=== PATIENT | female | born 1940 | race Caucasian/White ===

== ENCOUNTER 2021-07-28 11:57 | Emergency (ER) | payer OTHER ==
[2021-07-28 12:48] LABS: Absolute Lymphocytes (CBC) 1.6 K/uL (0.7-4.9); Basophils % 0.4 % (0-1.3); Hematocrit 46.6 % (36.0-45.0); Lymphocytes % 21.6 % (15.3-44.8); MPV 8.2 fL (7.6-11.3)
[2021-07-28 13:02] LABS: Potassium 3.8 mmol/L (3.5-5.1)
[2021-07-28] MEDS ORDERED: ONDANSETRON 4 MG/2 ML VIAL ONE ×2 (13:05→14:20)
[2021-07-28] MEDS ORDERED: MORPHINE 2 MG/ML SYR ONE (13:05)
--- NOTE | 2021-07-28 16:46 | RAD REPORT ---
EXAM DESCRIPTION: MRI - Brain W/Wo Cont - 07/28/2021 3:07 pm CLINICAL HISTORY: Confusion COMPARISON: CT head 07/28/2021 TECHNIQUE: Sagittal T1-weighted images were obtained along with PD/heavily T2-weighted and T2-FLAIR images. Axial DWI and ADC mapping sequences were also obtained. Coronal heavily T2-weighted images w ere obtained. FINDINGS: No intracranial hemorrhage, mass or acute infarction. There is no edema or shift of midlin e structures. No extra-axial fluid collections. May-matter/white matter junction is preserved. Signa l voids are seen as a normal finding in the major intracranial vessels. Atrophy and moderate chronic ischemic changes are present. Mastoid air cells and paranasal sinuses are clear. IMPRESSION: 1. Atrophy and chronic ischemic changes are present. 2. No acute intra-cranial findings.
[2021-07-28 17:10] LABS: CSF Glucose 71 mg/dL (40-70)
--- NOTE | 2021-07-28 17:17 | RAD REPORT ---
EXAM DESCRIPTION: CT - Head Brain Wo Cont - 07/28/2021 3:07 pm CLINICAL HISTORY: CONFUSED COMPARISON: Brain W/Wo Cont dated 07/28/2021 TECHNIQUE: All CT scans are performed using dose optimization technique as appropriate and may inclu de automated exposure control or mA/KV adjustment according to patient size. FINDINGS: No intracranial hemorrhage, hydrocephalus or extra-axial fluid collection.No areas of brai n edema or evidence of midline shift. Chronic small vessel ischemic changes. Mild cerebral atrophy. The paranasal sinuses and mastoids are clear. The calvarium is intact. IMPRESSION: No acute intracranial abnormality.
[2021-07-28 17:32] LABS: Appearance CLEAR (CLEAR); Body Fluid Source CSF; Body Fluid WBC 2 /mm^3; Color of fluid Colorless (COLORLESS)
[2021-07-28 17:33] LABS: Body Fluid Source CSF; Color of fluid Colorless (COLORLESS); Fluid Total Volume 4 ml
[2021-07-28 17:34] LABS: Appearance CLEAR (CLEAR); Body Fluid WBC 1 /mm^3
[2021-07-28 19:05] LABS: Urine Blood 1+ (Negative); Urine Glucose Negative (Negative); Urine Protein Negative (Negative); Urine Specific Gravity >=1.030 (1.005-1.030); Urine pH 5.5 (5.0-7.0)
--- NOTE | 2021-07-28 19:15 | EDPHYS ---
Physician Documentation [facility] Name: Maral Cain Age: 81 yrs Sex: Female : 1940 Arrival Date: 07/28/2021 Time: 12:02 Bed 27 Private MD: ED Physician Bruce Fonseca HPI: 07/28 15:19 This 81 yrs old Female presents to ER via Wheelchair with complaints of kdr Altered Mental Status. 15:19 The patient presents with confusion, decreased mental status, decreased responsiveness, kdr disorientation. Onset: The symptoms/episode began/occurred last night. Possible causes: low blood sugar, sepsis. Associated signs and symptoms: The patient has no apparent associated signs or symptoms, Pertinent positives: confusion, lightheadedness, nausea, weakness. Current symptoms: In the emergency department the patient's symptoms are unchanged from the initial presentation. Patient's baseline: Neuro: alert and fully oriented, Motor: no deficits. The patient has not experienced similar symptoms in the past. The patient has not recently seen a physician. Historical: - Allergies: 12:14 No Known Allergies; ss - Home Meds: 12:14 None [Active]; ss - PMHx: 12:14 COPD; ss - Immunization history:: Client reports having NOT received the Covid vaccine. - Social history:: Smoking status: Patient/guardian denies using tobacco, the patient reports quitting approximately 3 years ago. ROS: 15:19 Constitutional: Negative for fever, chills, and weight loss, the patient's history was kdr gathered from her daughter. The patient was generally poorly responsive Eyes: Negative for injury, pain, redness, and discharge, Neck: Negative for injury, pain, and swelling, Cardiovascular: Negative for chest pain, palpitations, and edema, Respiratory: Negative for shortness of breath, cough, wheezing, and pleuritic chest pain, Abdomen/GI: Negative for abdominal pain, nausea, vomiting, diarrhea, and constipation, Back: Negative for injury and pain, MS/Extremity: Negative for injury and deformity, Skin: Negative for injury, rash, and discoloration, Psych: Negative for depression, anxiety, suicide ideation, homicidal ideation, and hallucinations, Allergy/Immunology: Negative for hives, rash, and allergies, Endocrine: Negative for neck swelling, polydipsia, polyuria, polyphagia, and marked weight changes. 15:19 Neuro: Positive for altered mental status, headache, Right protestant and nasal bridge pain, Negative for dizziness, gait disturbance, loss of consciousness, numbness, seizure activity, speech changes, syncope, near syncope. Exam: 15:19 Constitutional: This is a well developed, well nourished patient who is awake, alert, kdr and in no acute distress. Head/Face: Normocephalic, atraumatic. Eyes: Pupils equal round and reactive to light, extra-ocular motions intact. Lids and lashes normal. Conjunctiva and sclera are non-icteric and not injected. Cornea within normal limits. Periorbital areas with no swelling, redness, or edema. Neck: Trachea midline, no thyromegaly or masses palpated, and no cervical lymphadenopathy. Supple, full range of motion without nuchal rigidity, or vertebral point tenderness. No Meningismus. Chest/axilla: Normal chest wall appearance and motion. Nontender with no deformity. No lesions are appreciated. Cardiovascular: Regular rate and rhythm with a normal S1 and S2. No gallops, murmurs, or rubs. Normal PMI, no JVD. No pulse deficits. Respiratory: Lungs have equal breath sounds bilaterally, clear to auscultation and percussion. No rales, rhonchi or wheezes noted. No increased work of breathing, no retractions or nasal flaring. Abdomen/GI: Soft, non-tender, with normal bowel sounds. No distension or tympany. No guarding or rebound. No evidence of tenderness throughout. Back: No spinal tenderness. No costovertebral tenderness. Full range of motion. Skin: Warm, dry with normal turgor. Normal color with no rashes, no lesions, and no evidence of cellulitis. MS/ Extremity: Pulses equal, no cyanosis. Neurovascular intact. Full, normal range of motion. Psych: Awake, alert, with orientation to person, place and time. Behavior, mood, and affect are within normal limits. 15:19 Neuro: Orientation: to person, Not oriented to place, time, Patient is appears to have some photophobia. Patient responds appropriately to questions. She otherwise is acting appropriately.. Vital Signs: 12:11 BP 170 / 79; Pulse 96; Resp 20; Temp 98.6(O); Pulse Ox 87% on R/A; Weight 54.43 kg; ss Height 5 ft. 7 in. (170.18 cm); Pain 5/10; 12:30 BP 164 / 81; Pulse 76; Resp 15; Pulse Ox 99% on 2 lpm NC; oh 13:59 BP 152 / 78; Pulse 66; Resp 20; Pulse Ox 99% on 2 lpm NC; oh 13:59 BP 145 / 62; Pulse 65; Resp 16; Pulse Ox 100% on 2 lpm NC; oh 15:00 BP 165 / 64; Pulse 64; Resp 17; Pulse Ox 100% on 2 lpm NC; oh 19:40 BP 107 / 77; Pulse 60; Resp 16; Temp 98.5(O); Pulse Ox 100% on R/A; Pain 0/10; bc5 12:11 Body Mass Index 18.79 (54.43 kg, 170.18 cm) ss MDM: 15:19 Data reviewed: vital signs, nurses notes. Counseling: I had a detailed discussion with kdr the patient and/or guardian regarding: the historical points, exam findings, and any diagnostic results supporting the discharge/admit diagnosis. ED course: Few minutes ago I reevaluated the patient. She seemed to have still have some photophobia and it was difficult to discern whether she had nuchal rigidity or not. Given the current symptoms and failure to resolve and get her feeling better, will perform a lumbar puncture to ensure that meningitis is ruled out. 19:14 Patient medically screened. [facility] 07/28 12:18 Order name: CBC with Diff; Complete Time: 15:06 [facility] 07/28 12:18 Order name: Chem 7; Complete Time: 15:06 [facility] 07/28 12:18 Order name: ESR; Complete Time: 15:06 [facility] 07/28 13:26 Order name: SARS-COV-2 RT PCR; Complete Time: 15:06 [facility] 07/28 15:58 Order name: CREATININE WHOLE BLOOD; Complete Time: 17:13 [facility] 07/28 12:19 Order name: CT Head Brain wo Cont; Complete Time: 17:52 kdr 07/28 16:41 Order name: Csf Culture; Complete Time: 17:52 iw 07/28 16:41 Order name: Fluid Cell Count,Body; Complete Time: 17:52 iw 07/28 16:41 Order name: Spinal Fluid Profile; Complete Time: 17:52 iw 07/28 18:59 Order name: Urine Microscopic Only iw 07/28 19:05 Order name: Urine Dipstick-Ancillary ED[facility] 07/28 19:35 Order name: Urine Culture ED[facility] 07/28 12:19 Order name: MRI - Brain W/Wo Cont; Complete Time: 17:13 kdr 07/28 15:33 Order name: LP Consents; Complete Time: 15:59 iw 07/28 15:33 Order name: LP Setup; Complete Time: 15:59 iw Administered Medications: 12:48 Drug: morphine 2 mg Route: IVP; Site: right antecubital; oh 19:41 Follow up: Response: Pain is decreased bc5 12:48 Drug: Zofran (Ondansetron) 2 mg Route: IVP; Site: right antecubital; oh 19:41 Follow up: Response: Nausea is decreased bc5 Disposition Summary: 07/28/21 19:14 Discharge Ordered Location: Home kdr Problem: new kdr Symptoms: have improved kdr Condition: Stable kdr Diagnosis - Altered mental status, unspecified kdr - UTI/ Urinary tract infection, site not specified kdr Followup: kdr - With: Private Physician - When: 2 - 3 days - Reason: If symptoms return, Further diagnostic work-up, Recheck today's complaints, Continuance of care, Re-evaluation by your physician Discharge Instructions: - Discharge Summary Sheet kdr - Confusion kdr - Urinary Tract Infection, Adult, [id number] kdr Forms: - Medication Reconciliation Form kdr - Thank You Letter kdr - Antibiotic Education kdr Prescriptions: - Bactrim DS 800-160 mg Oral Tablet - take 1 tablet by ORAL route every 12 hours for 7 days; 14 tablet; Refills: 0, kdr Product Selection Permitted - albuterol sulfate 90 mcg/actuation Inhalation HFA aerosol inhaler - inhale 2 puff by INHALATION route every 4 hours As needed; 2 Cartridge; kdr Refills: 0, Product Selection Permitted Signatures: Dispatcher [employer] EDMS Bruce Fonseca MD MD kdr Lorraine Vuong RN RN Selene Blunt RN RN Autumn Hartman RN RN oh Tiffanie Angeles RN bc5 Corrections: (The following items were deleted from the chart) 13:27 12:20 CORONAVIRUS+MR.LAB.BRZ ordered. EDMS EDMS
--- NOTE | 2021-07-28 19:15 | ER ---
Nurse's Notes [facility] Name: Maral Cain Age: 81 yrs Sex: Female : 1940 Arrival Date: 07/28/2021 Time: 12:02 Bed 27 Private MD: Diagnosis: Altered mental status, unspecified;UTI/ Urinary tract infection, site not specified Presentation: 07/28 12:11 Chief complaint: Patient's son or daughter states: Confusion since last night. Pt ss reported to daughter that she felt almost as she was drunk. C/o pain to R [employer] of bridge of nose since yesterday. No known trauma. Coronavirus screen: Client presents with at least one sign or symptom that may indicate coronavirus-19. Ebola Screen: Patient denies exposure to infectious person. Patient denies travel to an Ebola-affected area in the 21 days before illness onset. Initial Sepsis Screen: Does the patient meet any 2 criteria? No. Patient's initial sepsis screen is negative. Does the patient have a suspected source of infection? No. Patient's initial sepsis screen is negative. Risk Assessment: Do you want to hurt yourself or someone else? Patient reports no desire to harm self or others. Onset of symptoms was July 27, 2021. 12:11 Method Of Arrival: Wheelchair ss 12:11 Acuity: RADHA 3 ss Triage Assessment: 13:24 General: Appears uncomfortable, Behavior is cooperative, appropriate for age. oh 13:25 Pain: Complains of pain in temporaral / frontal headache. oh Historical: - Allergies: 12:14 No Known Allergies; ss - Home Meds: 12:14 None [Active]; ss - PMHx: 12:14 COPD; ss - Immunization history:: Client reports having NOT received the Covid vaccine. - Social history:: Smoking status: Patient/guardian denies using tobacco, the patient reports quitting approximately 3 years ago. Screenin:24 Abuse screen: Denies threats or abuse. Nutritional screening: No deficits noted. oh Tuberculosis screening: No symptoms or risk factors identified. Fall Risk Ambulatory Aid- Gait-. Assessment: 13:22 General: Reports feeling ill for fatigue for daughter reports confusion, also some of oh the kids at home are sick. r/o covid. Neuro:. EENT:. Vital Signs: 12:11 BP 170 / 79; Pulse 96; Resp 20; Temp 98.6(O); Pulse Ox 87% on R/A; Weight 54.43 kg; ss Height 5 ft. 7 in. (170.18 cm); Pain 5/10; 12:30 BP 164 / 81; Pulse 76; Resp 15; Pulse Ox 99% on 2 lpm NC; oh 13:59 BP 152 / 78; Pulse 66; Resp 20; Pulse Ox 99% on 2 lpm NC; oh 13:59 BP 145 / 62; Pulse 65; Resp 16; Pulse Ox 100% on 2 lpm NC; oh 15:00 BP 165 / 64; Pulse 64; Resp 17; Pulse Ox 100% on 2 lpm NC; oh 19:40 BP 107 / 77; Pulse 60; Resp 16; Temp 98.5(O); Pulse Ox 100% on R/A; Pain 0/10; bc5 12:11 Body Mass Index 18.79 (54.43 kg, 170.18 cm) ss ED Course: 12:02 Patient arrived in ED. as 12:11 Bruce Fonseca MD is Attending Physician. kdr 12:14 Triage completed. ss 12:14 Arm band placed on right wrist. ss 12:23 Autumn Hartman, ARJUN is Primary Nurse. oh 12:38 ESR Sent. oh 12:38 Chem 7 Sent. oh 12:38 CBC with Diff Sent. oh 12:48 Inserted saline lock: 20 gauge in right antecubital area, using aseptic technique. oh Blood collected. 12:58 CT Head Brain wo Cont In Process Unspecified. EDMS 13:24 Bed in low position. Call light in reach. Side rails up X2. Adult w/ patient. oh 13:25 Patient moved to MRI. oh 14:27 MRI - Brain W/Wo Cont In Process Unspecified. EDMS 16:40 Assist provider with lumbar puncture: Set up LP tray. Performed by Nando NGUYEN CSF iw is clear. Puncture site dressed with 4X4s, Procedure was successful. Patient tolerated well. 20:03 IV discontinued, intact, bleeding controlled, No redness/swelling at site. Pressure bc5 dressing applied. Administered Medications: 12:48 Drug: morphine 2 mg Route: IVP; Site: right antecubital; oh 19:41 Follow up: Response: Pain is decreased bc5 12:48 Drug: Zofran (Ondansetron) 2 mg Route: IVP; Site: right antecubital; oh 19:41 Follow up: Response: Nausea is decreased [facility] Outcome: 19:14 Discharge ordered by . [facility] 19:40 Condition: improved [facility] 20:03 Discharged to home via wheelchair, with family. [facility] 20:03 Discharge instructions given to patient, family, Instructed on discharge instructions, follow up and referral plans. medication usage, Prescriptions given X 2. 20:05 Patient left the ED. [facility] Signatures: Dispatcher [employer] EDMS Bruce Fonseca MD MD kdr Sue Mccabe Irene, RN RN Selene Blunt RN RN Tiffanie Angeles RN RN [facility] Autumn Hartman RN RN oh Corrections: (The following items were deleted from the chart) 13:27 12:38 CORONAVIRUS+MREVITA drawn and sent. tx EDVT 16:47 14:59 BP 152 / 78; Pulse 66bpm; Resp 20bpm; Pulse Ox 99% 2 lpm Nasal Cannula; oh oh
[2021-07-28 19:33] LABS: Urine Bacteria LOADED /HPF (<20); Urine RBC NONE SEEN /HPF (NONE SEEN)
[2021-07-28 20:19] VITALS: O2SAT 100
[2021-07-28 20:22] VITALS: BP 107/77; TEMP 98.5
--- NOTE | 2021-07-29 16:39 | EKG ---
Test Date: 2021-07-28 Test Time: 14:10:14 Metal Wire Technician: ARIS MEASUREMENT RESULTS: Intervals: Rate: 66 ME: 170 QRSD: 80 QT: 384 QTc: 402 Wendel: P: 66 ME: 170 QRS: 73 T: 80 INTERPRETIVE STATEMENTS: Normal sinus rhythm Normal ECG Compared to ECG 08/23/2017 13:17:51 No significant changes Electronically Signed On 07-29-21 16:35:52 CDT by Jose Angeles
== END 2021-07-28 20:05 | disposition home or self-care (01) ==
LOC: ER 11:57
DX: N39.0 Urinary tract infection, site not specified (principal); Z20.822 Contact with and (suspected) exposure to COVID-19
CPT/HCPCS: 93005; 87088; 87070; 85025; 87086; 80048; 36415; 89050 ×2; 84157; 82565; 82945; 85652; 70450; 70553; U0003; A9577; J2270; J2405 ×2; 81003; 81015

== ENCOUNTER 2022-01-19 19:41 | Emergency (ER) | payer OTHER ==
--- NOTE | 2022-01-19 21:00 | RAD REPORT ---
EXAM DESCRIPTION: CT - Head Brain Wo Cont - 01/19/2022 8:53 pm CLINICAL HISTORY: DIZZINESS Headache, drowsiness, dizziness COMPARISON: Head Brain Wo Cont dated 07/28/2021 TECHNIQUE: All CT scans are performed using dose optimization technique as appropriate and may inclu de automated exposure control or mA/KV adjustment according to patient size. FINDINGS: No intracranial hemorrhage, hydrocephalus or extra-axial fluid collection.Mild generalized brain atrophy is present with mild periventricular and deep white matter chronic microvascular ische chandrika changes.No areas of brain edema or evidence of midline shift. The paranasal sinuses and mastoids are clear. The calvarium is intact. IMPRESSION: No acute intracranial abnormality.
[2022-01-19 21:39] LABS: Lymphocytes % 33.5 % (15.3-44.8); MPV 8.6 fL (7.6-11.3); RBC Red Blood Cell Count 4.82 M/uL (3.86-4.86)
[2022-01-19 21:40] LABS: Protime INR 1.02
[2022-01-19 22:01] LABS: ALT/SGPT 22 U/L (12-78); AST/SGOT 19 U/L (15-37); Albumin 3.6 g/dL (3.4-5.0); Alkaline Phosphatase 89 U/L (45-117); BUN Blood Urea Nitrogen 22 mg/dL (7-18); Bicarbonate 30 mmol/L (21-32); Bilirubin Total 0.2 mg/dL (0.2-1.0); Glucose Level 102 mg/dL (74-106); Magnesium 2.2 mg/dL (1.8-2.4); NT PRO-BNP 61 pg/mL (<450); Protein, Total 7.3 g/dL (6.4-8.2); Sodium Level 140 mmol/L (136-145)
--- NOTE | 2022-01-19 22:06 | RAD REPORT ---
EXAM DESCRIPTION: RAD - Chest Single View - 01/19/2022 9:56 pm CLINICAL HISTORY: dizziness Chest pain. COMPARISON: Chest Single View dated 08/23/2017; Chest Pa And Lat (2 Views) dated 01/04/2017 FINDINGS: Portable technique limits examination quality. The lungs are grossly clear. The heart is normal in size. No displaced fractures. IMPRESSION: No acute intrathoracic process suspected.
[2022-01-19 22:09] LABS: Bilirubin Direct < 0.1 mg/dL (0-0.2)
--- NOTE | 2022-01-19 23:26 | EDPHYS ---
Physician Documentation [facility] Name: Maral Cain Age: 81 yrs Sex: Female : 1940 Arrival Date: 01/19/2022 Time: 19:44 Bed 19 Private MD: ED Physician Darwin Lance HPI: 01/19 20:36 This 81 yrs old Female presents to ER via Ambulatory with complaints of Dizziness, High pm1 Blood Pressure. 20:36 The patient presents with dizziness, When changing position, getting up from seated pm1 position. Dizziness resolved after standing. Onset: The symptoms/episode began/occurred 1 hour(s) ago. Context: occurred at home, occurred while the patient was Getting up from chair. just prior to the episode the patient experienced no apparent symptoms. Modifying factors: the symptoms are aggravated by changing position. Associated signs and symptoms: Pertinent negatives: abdominal pain, chest pain, numbness, shortness of breath, tingling. Severity of symptoms: in the emergency department the symptoms have resolved Pain is currently a 0 / 10. The patient has not recently seen a physician. Patient has not seen PCP for annual visit since onset of Covid pandemic. Patient does not currently take any blood pressure medicines, took blood pressure after onset of dizziness in the advised that her blood pressure was elevated. Historical: - Allergies: 19:59 No Known Allergies; ll3 - Home Meds: 19:59 None [Active]; ll3 - PMHx: 19:59 COPD; ll3 - PSHx: 19:59 None; ll3 - Immunization history:: Client reports having NOT received the Covid vaccine. - Social history:: Smoking status: Patient denies any tobacco usage or history of. ROS: 20:36 Constitutional: Negative for fever, chills, and weight loss, Cardiovascular: Negative pm1 for chest pain, palpitations, and edema, Respiratory: Negative for shortness of breath, cough, wheezing, and pleuritic chest pain, Abdomen/GI: Negative for abdominal pain, nausea, vomiting, diarrhea, and constipation, Back: Negative for injury and pain, MS/Extremity: Negative for injury and deformity, Skin: Negative for injury, rash, and discoloration. 20:36 Neuro: Positive for dizziness, Negative for headache, numbness, tingling, weakness. 20:36 All other systems are negative. Exam: 20:36 Constitutional: This is a well developed, well nourished patient who is awake, alert, pm1 and in no acute distress. Head/Face: Normocephalic, atraumatic. 20:36 Back: No spinal tenderness. No costovertebral tenderness. Full range of motion. Skin: Warm, dry with normal turgor. Normal color with no rashes, no lesions, and no evidence of cellulitis. MS/ Extremity: Pulses equal, no cyanosis. Neurovascular intact. Full, normal range of motion. 20:36 Eyes: Exam is negative for acute changes, Periorbital structures: appear normal, Extraocular movements: no acute changes, Conjunctiva: no acute changes, Corneas: no acute changes. 20:36 ENT: Exam is negative for acute changes, Mouth: no acute changes, Lips: normal, moist, Oral mucosa: normal, pink and intact, moist. 20:36 Cardiovascular: Exam negative for acute changes, Rate: normal, Rhythm: regular, Pulses: no pulse deficits are appreciated, Heart sounds: normal. 20:36 Respiratory: Exam negative for acute changes, respiratory distress, shortness of breath, Breath sounds: are clear throughout. 20:36 Abdomen/GI: Exam negative for acute changes, Inspection: abdomen appears normal, Palpation: abdomen is soft and non-tender, in all quadrants. 20:36 Neuro: Exam negative for acute changes, Orientation: is normal, Mentation: is normal, Motor: is normal, moves all fours, Sensation: is normal, no obvious gross deficits. Vital Signs: 19:55 BP 194 / 77; Pulse 67; Resp 15; Temp 98.1; Pulse Ox 95% on R/A; Weight 54.43 kg (R); ll3 Height 5 ft. 6 in. (167.64 cm); Pain 0/10; 20:24 BP 190 / 88; Pulse 68; Resp 20; Pulse Ox 95% on R/A; kd3 22:23 BP 197 / 88 Supine; Pulse 65; Resp 17; Pulse Ox 95% on R/A; kd3 22:23 BP 197 / 86 Sitting; Pulse 72; Resp 19; Pulse Ox 95% on R/A; kd3 22:24 BP 206 / 90 Standing; Pulse 69; Resp 20; Pulse Ox 94% on R/A; kd3 23:46 BP 185 / 91; Pulse 64; Resp 19; Pulse Ox 94% on R/A; kd3 19:55 Body Mass Index 19.37 (54.43 kg, 167.64 cm) ll3 MDM: 20:14 Patient medically screened. negar 23:10 Data reviewed: vital signs. Data interpreted: Pulse oximetry: on room air is 95 %. pm1 Interpretation: normal. 23:24 Counseling: I had a detailed discussion with the patient and/or guardian regarding: the pm1 historical points, exam findings, and any diagnostic results supporting the discharge/admit diagnosis, lab results, radiology results, the need for outpatient follow up, to return to the emergency department if symptoms worsen or persist or if there are any questions or concerns that arise at home. 23:24 Special discussion: I have referred the patient to see his PCP for further evaluation pm1 of high blood pressure. 01/19 20:30 Order name: Basic Metabolic Panel; Complete Time: 22:11 pm01/19 20:30 Order name: CBC with Diff; Complete Time: 21:57 pm01/19 20:30 Order name: LFT's; Complete Time: 22:11 pm01/19 20:30 Order name: Magnesium; Complete Time: 22:11 pm01/19 20:30 Order name: NT PRO-BNP; Complete Time: 22:11 pm01/19 20:30 Order name: PT-INR; Complete Time: 21:57 pm01/19 20:30 Order name: Troponin HS; Complete Time: 22:11 pm01/19 20:30 Order name: XRAY Chest (1 view); Complete Time: 22:11 pm01/19 20:30 Order name: EKG; Complete Time: 20:31 pm01/19 20:30 Order name: Cardiac monitoring; Complete Time: 22:14 pm01/19 20:30 Order name: EKG - Nurse/Tech; Complete Time: 20:52 pm01/19 20:30 Order name: IV Saline Lock; Complete Time: 22:14 pm01/19 20:30 Order name: Labs collected and sent; Complete Time: 22:14 pm01/19 20:30 Order name: CT Head Brain wo Cont; Complete Time: 21:06 pm01/19 20:30 Order name: O2 Per Protocol; Complete Time: 22:14 pm01/19 20:30 Order name: O2 Sat Monitoring; Complete Time: 22:14 pm1 01/19 20:30 Order name: Orthostatic Blood Pressure; Complete Time: 22:23 pm1 Administered Medications: No medications were administered Disposition Summary: 01/19/22 23:25 Discharge Ordered Location: Home pm1 Problem: new pm1 Symptoms: have improved pm1 Condition: Stable pm1 Diagnosis - Essential (primary) hypertension pm1 Followup: pm1 - With: Emergency Department - When: As needed - Reason: Worsening of condition Followup: pm1 - With: Private Physician - When: 2 - 3 days - Reason: Recheck today's complaints, Continuance of care, Re-evaluation by your physician Discharge Instructions: - Discharge Summary Sheet pm1 - Hypertension, Adult pm1 - How to Take Your Blood Pressure, [id number] pm1 - DASH Eating Plan pm1 - Managing Your Hypertension pm1 Forms: - Medication Reconciliation Form pm1 - Thank You Letter pm1 - Antibiotic Education pm1 - Prescription Opioid Use pm1 Addendum: 01/21/2022 07:20 Co-signature as Attending Physician, Darwin Lance MD I agree with the assessment and c [place] plan of care. Signatures: Dispatcher [employer] EDDarwin Foss MD MD cha Marinas, Patrick, SOLE SEAMER SOLE SEAMER pm1 Skyler Jimenez RN RN ll3 Renee Dolan PA PA sb3
--- NOTE | 2022-01-19 23:26 | ER ---
Nurse's Notes [facility] Name: Maral Cain Age: 81 yrs Sex: Female : 1940 Arrival Date: 01/19/2022 Time: 19:44 Bed 19 Private MD: Diagnosis: Essential (primary) hypertension Presentation: 01/19 19:55 Chief complaint: Patient states: States about an hour ago started feeling dizzy, states ll3 took bp at home and it was high 180s systolic, c/o throbbing in left ear. Coronavirus screen: Vaccine status: Patient reports being unvaccinated. At this time, the client does not indicate any symptoms associated with coronavirus-19. Ebola Screen: No symptoms or risks identified at this time. Initial Sepsis Screen: Does the patient meet any 2 criteria? No. Patient's initial sepsis screen is negative. Does the patient have a suspected source of infection? No. Patient's initial sepsis screen is negative. Risk Assessment: Do you want to hurt yourself or someone else? Patient reports no desire to harm self or others. Onset of symptoms was January 19, 2022 at 19:00. 19:55 Method Of Arrival: Ambulatory ll3 19:55 Acuity: RADHA 3 ll3 Triage Assessment: 19:59 General: Appears comfortable, Behavior is calm, cooperative. Pain: Denies pain. EENT: ll3 Reports c/o of a throbbing pressure to left ear, states it feels like her heart beat. Neuro: Level of Consciousness is awake, alert, obeys commands, Oriented to person, place, time, Appropriate for age Reports dizziness, States she was dizzy at home but no longer is now. Cardiovascular: Patient's skin is warm and dry. Respiratory: Respiratory effort is even, unlabored, Respiratory pattern is regular, symmetrical. Derm: Skin is pink, warm \T\ dry. Historical: - Allergies: 19:59 No Known Allergies; ll3 - Home Meds: 19:59 None [Active]; ll3 - PMHx: 19:59 COPD; ll3 - PSHx: 19:59 None; ll3 - Immunization history:: Client reports having NOT received the Covid vaccine. - Social history:: Smoking status: Patient denies any tobacco usage or history of. Screenin:25 Abuse screen: Denies threats or abuse. Denies injuries from another. Nutritional kd3 screening: No deficits noted. Tuberculosis screening: No symptoms or risk factors identified. Fall Risk IV access (20 points). Assessment: 22:24 General: Appears in no apparent distress. comfortable, Behavior is calm, cooperative, kd3 appropriate for age. Pain: Denies pain. Neuro: Level of Consciousness is awake, alert, obeys commands, Oriented to person, place, time, situation. Cardiovascular: Patient's skin is warm and dry. Respiratory: Airway is patent Trachea midline Respiratory effort is even, unlabored. Vital Signs: 19:55 BP 194 / 77; Pulse 67; Resp 15; Temp 98.1; Pulse Ox 95% on R/A; Weight 54.43 kg (R); ll3 Height 5 ft. 6 in. (167.64 cm); Pain 0/10; 20:24 BP 190 / 88; Pulse 68; Resp 20; Pulse Ox 95% on R/A; kd3 22:23 BP 197 / 88 Supine; Pulse 65; Resp 17; Pulse Ox 95% on R/A; kd3 22:23 BP 197 / 86 Sitting; Pulse 72; Resp 19; Pulse Ox 95% on R/A; kd3 22:24 BP 206 / 90 Standing; Pulse 69; Resp 20; Pulse Ox 94% on R/A; kd3 23:46 BP 185 / 91; Pulse 64; Resp 19; Pulse Ox 94% on R/A; kd3 19:55 Body Mass Index 19.37 (54.43 kg, 167.64 cm) ll3 ED Course: 19:44 Patient arrived in ED. kz 19:59 Triage completed. ll3 19:59 Arm band placed on. ll3 20:09 Delmar Monk NP is PHCP. pm1 20:09 Darwin Lance MD is Attending Physician. pm1 20:24 Louann Aguirre, ARJUN is Primary Nurse. kd3 20:54 CT Head Brain wo Cont In Process Unspecified. EDMS 21:58 XRAY Chest (1 view) In Process Unspecified. EDMS 22:25 Patient has correct armband on for positive identification. Placed in gown. Bed in low kd3 position. Call light in reach. Side rails up X2. 23:46 No provider procedures requiring assistance completed. IV discontinued, intact, kd3 bleeding controlled, No redness/swelling at site. Pressure dressing applied. Administered Medications: No medications were administered Outcome: :25 Discharge ordered by MD. pm1 :47 Discharged to home ambulatory. kd3 :47 Condition: stable 23:47 Condition: stable 23:47 Discharge instructions given to patient, Instructed on discharge instructions, follow up and referral plans. Demonstrated understanding of instructions, follow-up care. 23:47 Patient left the ED. kd3 Signatures: Dispatcher [employer] EDVT Delmar Monk NP CRANE RIGGER pm1 Skyler Jimenez, RN RN ll3 Louann Aguirre RN RN kd3 Mary Caruso
--- NOTE | 2022-01-20 07:11 | EKG ---
Test Date: 2022-01-19 Test Time: 20:17:31 Social Services Designee: DAVID MEASUREMENT RESULTS: Intervals: Rate: 67 GA: 160 QRSD: 92 QT: 378 QTc: 399 Gormania: P: 73 GA: 160 QRS: 78 T: 76 INTERPRETIVE STATEMENTS: Normal sinus rhythm Minimal voltage criteria for LVH, may be normal variant ST abnormality, possible digitalis effect Abnormal ECG Compared to ECG 07/28/2021 14:10:14 Left ventricular hypertrophy now present ST (T wave) deviation now present Electronically Signed On 01-20-22 07:09:33 CDT by Jose Angeles
[2022-01-20 14:26] VITALS: TEMP 98.1
[2022-01-20 14:30] VITALS: O2SAT 94
[2022-01-20 14:32] VITALS: BP 185/91
== END 2022-01-19 23:47 | disposition home or self-care (01) ==
LOC: ER 19:41
DX: I10 Essential (primary) hypertension (principal); J44.9 Chronic obstructive pulmonary disease, unspecified
CPT/HCPCS: 36415; 70450; 71045; 80048; 80076; 83735; 83880; 84484; 85025; 85610; 93005; 99283

== ENCOUNTER 2022-03-23 13:22 | Inpatient (IN) | payer OTHER ==
[2022-03-23 16:13] LABS: Absolute Lymphocytes (CBC) 1.1 K/uL (0.7-4.9); Hematocrit 45.2 % (36.0-45.0); Lymphocytes % 30.8 % (15.3-44.8); MPV 7.7 fL (7.6-11.3); RBC Red Blood Cell Count 5.01 M/uL (3.86-4.86)
[2022-03-23 16:14] LABS: Protime INR 1.03
[2022-03-23 16:28] LABS: Albumin 3.4 g/dL (3.4-5.0); Bilirubin Direct 0.1 mg/dL (0-0.2); Bilirubin Total 0.3 mg/dL (0.2-1.0); Magnesium 2.3 mg/dL (1.8-2.4); Potassium 3.9 mmol/L (3.5-5.1); Protein, Total 7.3 g/dL (6.4-8.2); Troponin High Sensitivity 9.2 pg/mL (<58.9)
--- NOTE | 2022-03-23 16:50 | RAD REPORT ---
EXAM DESCRIPTION: RAD - Chest Single View - 03/23/2022 4:25 pm CLINICAL HISTORY: SOB Chest pain. COMPARISON: Chest Single View dated 01/19/2022; Chest Single View dated 08/23/2017; Chest Pa And Lat (2 Views) dated 01/04/2017 FINDINGS: Portable technique limits examination quality. The lungs are mildly emphysematous but grossly clear. The heart is normal in size. No displaced fract ures. IMPRESSION: No acute intrathoracic process suspected.
--- NOTE | 2022-03-23 17:00 | EDPHYS ---
Physician Documentation [facility] Name: Maral Cain Age: 81 yrs Sex: Female : 1940 Arrival Date: 03/23/2022 Time: 13:27 Bed 7 Private MD: ED Physician Michele Parra HPI: 03/23 13:34 This 81 yrs old Female presents to ER via Ambulatory with complaints of Cough, Body jmm Aches. 13:34 The patient or guardian reports cough. Onset: The symptoms/episode began/occurred jmm gradually, 3 day(s) ago. Modifying factors: The symptoms are alleviated by nothing, the symptoms are aggravated by nothing. This is a 81 year old female with a history of COPD that presents to the ED with complaints of cough, progressively worsening sob beginning approx 3 days ago. Denies chest pain. Patient does not have home O2. . Historical: - Allergies: 13:41 No Known Allergies; ap3 - Home Meds: 13:41 None [Active]; ap3 - PMHx: 13:41 COPD; ap3 - Immunization history:: Client reports having NOT received the Covid vaccine. - Social history:: Smoking status: Patient/guardian denies using tobacco, the patient reports quitting approximately 5 years ago. ROS: 13:34 Cardiovascular: Negative for chest pain, palpitations, and edema. jmm 13:34 Constitutional: Positive for body aches. 13:34 Respiratory: Positive for cough, shortness of breath. 13:34 All other systems are negative. Exam: 13:34 Constitutional: This is a well developed, well nourished patient who is awake, alert, jmm and in no acute distress. Head/Face: atraumatic. Eyes: EOMI, no conjunctival erythema appreciated ENT: Moist Mucus Membranes Neck: Trachea midline, Supple Chest/axilla: Normal chest wall appearance and motion. Cardiovascular: Regular rate and rhythm. No edema appreciated Abdomen/GI: Non distended, soft Back: Normal ROM Skin: General appearance color normal MS/ Extremity: Moves all extremities, no obvious deformities appreciated, no edema noted to the lower extremities Neuro: Awake and alert Psych: Behavior is normal, Mood is normal, Patient is cooperative and pleasant 13:34 Respiratory: the patient does not display signs of respiratory distress, Respirations: Breath sounds: wheezing: that is mild, is scattered. Vital Signs: 13:39 Temp 97.3; Weight 54.43 kg; Height 5 ft. 6 in. (167.64 cm); ap3 13:42 BP 121 / 53; Pulse 72; Pulse Ox 90% ; ap3 14:30 Pulse 74; Resp 26; Pulse Ox 90% on R/A; aa5 16:00 BP 159 / 77; Pulse 77; Resp 24 S; Pulse Ox 91% on R/A; aa5 16:10 Resp 40 S; Pulse Ox 82% on R/A; aa5 16:35 Pulse 80; Resp 22 S; Pulse Ox 100% on 2 lpm NC; aa5 17:20 BP 164 / 82; Pulse 66; Resp 20; Pulse Ox 100% on 2 lpm NC; jd3 18:20 BP 164 / 93; Pulse 72; Resp 21 S; Pulse Ox 100% on 2 lpm NC; jd3 19:36 BP 148 / 73; Pulse 71; Resp 18; Temp 98.5; Pulse Ox 100% 4 lpm ; mw1 13:39 Body Mass Index 19.37 (54.43 kg, 167.64 cm) ap3 16:10 upon ambulation, PA was notified. aa5 MDM: 13:40 Patient medically screened. [facility] 16:56 Data reviewed: vital signs, nurses notes. Counseling: I had a detailed discussion with farzana the patient and/or guardian regarding: the historical points, exam findings, and any diagnostic results supporting the discharge/admit diagnosis, lab results, radiology results, the need for outpatient follow up, the need for further work-up and treatment in the hospital. ED course: I discussed the patient with Sabino whom accepted the patient to Dr. Duffy's service. . 03/23 13:33 Order name: Influenza Screen (a \\T\\ B); Complete Time: 15:24 [facility] 03/23 13:33 Order name: Strep; Complete Time: 15:24 [facility] 03/23 13:34 Order name: SARS-COV-2 RT PCR (Document "Date of Onset" if Symptomatic); Complete Time: [facility] 15:24 03/23 14:42 Order name: Throat Culture [facility] 03/23 15:42 Order name: Basic Metabolic Panel; Complete Time: 16:34 [facility] 03/23 15:42 Order name: CBC with Diff; Complete Time: 16:34 [facility] 03/23 15:42 Order name: LFT's; Complete Time: 16:34 [facility] 03/23 15:42 Order name: Magnesium; Complete Time: 16:34 [facility] 03/23 15:42 Order name: NT PRO-BNP; Complete Time: 16:34 [facility] 03/23 15:42 Order name: PT-INR; Complete Time: 16:25 [facility] 03/23 15:42 Order name: Troponin HS; Complete Time: 16:34 [facility] 03/23 15:42 Order name: XRAY Chest (1 view); Complete Time: 16:54 [facility] 03/23 18:44 Order name: T4 Free; Complete Time: 18:46 [facility] 03/23 18:44 Order name: Thyroid Stimulating Hormone; Complete Time: 18:46 [facility] 03/23 15:38 Order name: Misc. Order: Ambulate, 02; Complete Time: 16:10 [facility] 03/23 15:42 Order name: EKG; Complete Time: 15:43 [facility] 03/23 15:42 Order name: Cardiac monitoring; Complete Time: 16:02 [facility] 03/23 15:42 Order name: EKG - Nurse/Tech; Complete Time: 16:02 [facility] 03/23 15:42 Order name: IV Saline Lock; Complete Time: 16:02 [facility] 03/23 15:42 Order name: Labs collected and sent; Complete Time: 16:02 [facility] 03/23 15:42 Order name: O2 Per Protocol; Complete Time: 16:10 [facility] 03/23 15:42 Order name: O2 Sat Monitoring; Complete Time: 16:10 [facility] 03/23 17:17 Order name: Diet Regular; Complete Time: 17:17 bp Administered Medications: 17:10 Drug: Decadron - Dexamethasone 10 mg Route: IVP; Site: left antecubital; aa5 17:15 Follow up: Response: No adverse reaction aa5 Disposition Summary: 03/23/22 16:59 Hospitalization Ordered Hospitalization Status: Observation [facility] Provider: Felix Mancia Location: Telemetry/MedSurg (observation) [facility] Condition: Stable [facility] Problem: new [facility] Symptoms: are unchanged [facility] Bed/Room Type: Standard [facility] Room Assignment: 418(03/23/22 19:38) dioni Diagnosis - Coronavirus infection, unspecified [facility] - Hypoxia [facility] Forms: - Medication Reconciliation Form [facility] - SBAR form [facility] Addendum: 03/24/2022 23:37 Co-signature as Attending Physician, Michele Parra MD. r n Signatures: Dispatcher [employer] EDMS Bhavani Elkins RN RN mw Mickail, Joel, PA PA jmm Nieto, Roman, MD MD rn Calderon, Audri RN RN aa5 Pastora Silva RN RN ap3 Corrections: (The following items were deleted from the chart) 03/23 19:38 16:59 farzana wheatley
--- NOTE | 2022-03-23 17:00 | ER ---
Nurse's Notes [facility] Name: Maral Cain Age: 81 yrs Sex: Female : 1940 Arrival Date: 03/23/2022 Time: 13:27 Bed 7 Private MD: Diagnosis: Coronavirus infection, unspecified;Hypoxia Presentation: 03/23 13:39 Chief complaint: Patient's son or daughter states: that the patient has been having ap3 congestion, for approx 3-4 days now. patient states she has been treating herself at home with nyquil/dayquil and soups. it is reported the patient has been afebrile. Coronavirus screen: Client presents with at least one sign or symptom that may indicate coronavirus-19. Ebola Screen: No symptoms or risks identified at this time. Initial Sepsis Screen: Does the patient meet any 2 criteria? No. Patient's initial sepsis screen is negative. Does the patient have a suspected source of infection? No. Patient's initial sepsis screen is negative. Risk Assessment: Do you want to hurt yourself or someone else? Patient reports no desire to harm self or others. Onset of symptoms was March 20, 2022. 13:39 Method Of Arrival: Ambulatory ap3 13:39 Acuity: RADHA 4 ap3 15:49 Acuity: RADHA 3 iw Triage Assessment: 13:41 General: Appears in no apparent distress. Behavior is calm, cooperative. Pain: ap3 Complains of pain in generalized body aches Pain began gradually, 2-3 days ago. EENT: Reports nasal congestion nasal discharge. Neuro: Level of Consciousness is awake, alert, obeys commands, Oriented to person, place, time, situation. Cardiovascular: Patient's skin is warm and dry. Respiratory: Airway is patent Respiratory effort is even, unlabored. Historical: - Allergies: 13:41 No Known Allergies; ap3 - Home Meds: 13:41 None [Active]; ap3 - PMHx: 13:41 COPD; ap3 - Immunization history:: Client reports having NOT received the Covid vaccine. - Social history:: Smoking status: Patient/guardian denies using tobacco, the patient reports quitting approximately 5 years ago. Screenin:42 Abuse screen: Denies threats or abuse. Nutritional screening: No deficits noted. ap3 Tuberculosis screening: No symptoms or risk factors identified. 13:45 Fall Risk No fall in past 12 months (0 pts). No secondary diagnosis (0 pts). No IV (0 ap3 pts). Ambulatory Aid- None/Bed Rest/Nurse Assist (0 pts). Gait- Weak (10 pts.). Mental Status- Oriented to own ability (0 pts). Total Ulloa Fall Scale indicates Low Risk Score (25-44 pts). Assessment: 14:40 General: Appears comfortable, Behavior is calm, cooperative. Pain: Denies pain. Neuro: aa5 Level of Consciousness is awake, alert, obeys commands, Oriented to person, place, situation. Cardiovascular: Heart tones S1 S2 present Rhythm is regular. Respiratory: Reports cough and SOB Airway is patent Respiratory effort is even, unlabored, Respiratory pattern is regular, symmetrical, Breath sounds are diminished bilaterally. GI: Abdomen is flat, non-distended, Bowel sounds present X 4 quads. Abd is soft and non tender X 4 quads. : No signs and/or symptoms were reported regarding the genitourinary system. EENT: Reports nasal congestion. Derm: Skin is pink, warm \T\ dry. Musculoskeletal: Range of motion: intact in all extremities. 15:45 Reassessment: Patient is alert, oriented x 3, equal unlabored respirations, skin aa5 warm/dry/pink. 16:10 Reassessment: Pt ambulated to restroom per PA. O2 sat 87% upon ambulation, decreased to aa5 82% upon returning to pt's room and placing pt in bed, pt tachypneic at 40 bpm. Pt placed back in bed, O2 being administered via NC at 2L, O2 currently 90% via 2 L NC. PA was notified of findings. . 16:35 Reassessment: Patient is alert, oriented x 3, equal unlabored respirations, skin aa5 warm/dry/pink. 17:10 Reassessment: Patient is alert, oriented x 3, equal unlabored respirations, skin aa5 warm/dry/pink. 17:19 Reassessment: Patient appears in no apparent distress at this time. Patient and/or jd3 family updated on plan of care and expected duration. Pain level reassessed. Patient is alert, oriented x 3, equal unlabored respirations, skin warm/dry/pink. awaiting admission. 17:19 Respiratory: Reports cough that is Breath sounds are diminished bilaterally. jd3 18:20 Reassessment: Patient appears in no apparent distress at this time. No changes from jd3 previously documented assessment. Patient and/or family updated on plan of care and expected duration. Pain level reassessed. Patient is alert, oriented x 3, equal unlabored respirations, skin warm/dry/pink. 19:43 Reassessment: Patient appears in no apparent distress at this time. No changes from as6 previously documented assessment. Vital Signs: 13:39 Temp 97.3; Weight 54.43 kg; Height 5 ft. 6 in. (167.64 cm); ap3 13:42 BP 121 / 53; Pulse 72; Pulse Ox 90% ; ap3 14:30 Pulse 74; Resp 26; Pulse Ox 90% on R/A; aa5 16:00 BP 159 / 77; Pulse 77; Resp 24 S; Pulse Ox 91% on R/A; aa5 16:10 Resp 40 S; Pulse Ox 82% on R/A; aa5 16:35 Pulse 80; Resp 22 S; Pulse Ox 100% on 2 lpm NC; aa5 17:20 BP 164 / 82; Pulse 66; Resp 20; Pulse Ox 100% on 2 lpm NC; jd3 18:20 BP 164 / 93; Pulse 72; Resp 21 S; Pulse Ox 100% on 2 lpm NC; jd3 19:36 BP 148 / 73; Pulse 71; Resp 18; Temp 98.5; Pulse Ox 100% 4 lpm ; mw1 13:39 Body Mass Index 19.37 (54.43 kg, 167.64 cm) ap3 16:10 upon ambulation, PA was notified. aa5 ED Course: 13:27 Patient arrived in ED. rg4 13:31 Nando Leger PA is PHCP. jmm 13:31 Michele Parra MD is Attending Physician. jmm 13:41 Triage completed. ap3 13:42 Arm band placed on left wrist. ap3 13:46 Patient has correct armband on for positive identification. Adult w/ patient. ap3 14:50 Nella Shaw, RN is Primary Nurse. aa5 15:45 Client placed on continuous cardiac and pulse oximetry monitoring. NIBP monitoring aa5 applied. 16:02 Basic Metabolic Panel Sent. zm 16:02 CBC with Diff Sent. zm 16:02 LFT's Sent. zm 16:02 Magnesium Sent. zm 16:02 NT PRO-BNP Sent. zm 16:02 PT-INR Sent. zm 16:02 Troponin HS Sent. zm 16:02 Inserted saline lock: 20 gauge in left antecubital area, using aseptic technique. Blood zm collected. 16:27 XRAY Chest (1 view) In Process Unspecified. EDMS 16:59 Felix Mancia MD is Hospitalizing Provider. [facility] 17:10 Report given to Jayjay Alvarez RN. aa5 17:19 Primary Nurse role handed off by Nella Shaw, ARJUN landaverde 17:19 Jayjay Bennett, ARJUN is Primary Nurse. jd3 19:05 Throat Culture Sent. tw5 19:49 No provider procedures requiring assistance completed. Patient admitted, IV remains in as6 place. Administered Medications: 17:10 Drug: Decadron - Dexamethasone 10 mg Route: IVP; Site: left antecubital; aa5 17:15 Follow up: Response: No adverse reaction aa5 Medication: 13:46 VIS not applicable for this client. ap3 Outcome: 16:59 Decision to Hospitalize by Provider. jmm 19:49 Admitted to Tele accompanied by tech, family with patient, via stretcher, room 418, as6 with oxygen, with chart, Report called to Lyudmila DÍAZ 19:49 Condition: stable 19:49 Instructed on the need for admit. 19:55 Patient left the ED. as6 Signatures: Dispatcher [employer] EDMS Nando Leger PA PA jmm Williams, Irene, RN RN iw Calderon, Audri, RN RN Viktoria Wayne Abdelrahman Ramirez 1 Jayjay Bennett RN RN Pastora Pereira RN RN ap3 Shakila Moran tw5 Karson Mckee RN RN as6 Chayo Mccabe
[2022-03-23] MEDS ORDERED: dexAMETHasone 10 MG/ML VIAL ONE (17:09)
[2022-03-23] MEDS ORDERED: ZOLPIDEM TARTRATE 5 MG TABLET PO PRN (17:45)
[2022-03-23] MEDS ORDERED: ACETAMINOPHEN 500 MG TAB PO PRN (17:45)
[2022-03-23] MEDS ORDERED: ONDANSETRON 4 MG/2 ML VIAL IV PRN (17:45)
--- NOTE | 2022-03-23 17:54 | P.HP ---
Certification for Inpatient Patient admitted to: Inpatient With expected LOS: >2 Midnights Patient will require the following post-hospital care: None Practitioner: I am a practitioner with admitting privileges, knowledge of patient current condition, hospital course, and medical plan of care. Services: Services provided to patient in accordance with Admission requirements found in Title 42 Section 412.3 of the Code of Federal Regulations Patient History Date of Service: 03/23/22 Reason for admission: Cough and sob History of Present Illness: Patient is a 81-year-old female with a past medical history significant for COPD who presents with complaint of cough Onset 4 days ago. Patient reports associated signs and symptoms of headache, chills, fatigue, weakness, malaise, chest congestion, shortness of breath and body aches. Patient denies any other signs and symptoms. Symptoms are aggravated or relieved by nothing. Patient decided to present to the hospital due to worsening symptoms. Allergies No Known Allergy (Uncoded 01/04/17 17:15) Unknown No Known Allergies Allergy (Uncoded 08/23/17 16:45) Unknown Home medications list reviewed: No - Past Medical/Surgical History Diabetic: No -: COPD Past Surgical History: Reviewed- Non-Contributory - Family History Family History: Reviewed- Non-Contributory - Social History Smoking Status: Former smoker Alcohol use: Yes CD- Drugs: No Caffeine use: No Place of Residence: Home Review of Systems General: Chills, Weakness, Malaise, Other (Body achesn Fatigue ) Eyes: Unremarkable ENT: Unremarkable Respiratory: Cough, Shortness of Breath, Other (Chest congestion ) Cardiovascular: Unremarkable Gastrointestinal: Unremarkable Genitourinary: Unremarkable Musculoskeletal: Back Pain Integumentary: Unremarkable Neurological: Weakness Lymphatics: Unremarkable Physical Examination - Physical Exam General: Alert, Oriented x3 HEENT: Normocephalic, PERRLA Neck: 2+ carotid pulse no bruit, JVD not distended Respiratory: Normal air movement, Diminished Cardiovascular: No edema, Regular rate/rhythm, Normal S1 S2 Capillary refill: <2 Seconds Gastrointestinal: Normal bowel sounds, Soft and benign, Non-distended Musculoskeletal: No swelling, No tenderness Integumentary: No rashes, No breakdown, No tenderness/swelling Neurological: Normal gait, Normal speech, Normal tone Lymphatics: No axilla or inguinal lymphadenopathy - Studies Laboratory Data (last 24 hrs) 03/23/22 15:57: PT 11.3, INR 1.03 03/23/22 15:57: WBC 3.7 L, Hgb 14.4, Hct 45.2 H, Plt Count 131 L 03/23/22 15:57: Sodium 137, Potassium 3.9, BUN 10, Creatinine 0.71, Glucose 90, Magnesium 2.3, Total Bilirubin 0.3, AST 17, ALT 19, Alkaline Phosphatase 63 Microbiology Data (last 24 hrs): 03/23/22 13:48 Nasopharnyx Influenza Type A Antigen Screen - Final 03/23/22 13:48 Nasopharnyx Influenza Type B Antigen Screen - Final 03/23/22 13:48 Throat Group A Streptococcus Rapid Screen - Final Assessment and Plan - Plan --COVID-19 infection. Pulmonology consulted. Chest x-ray does not indicate any pneumonia. Patient placed on steroids, Pepcid\vitamin C\vitamin D\thiamine\zinc and O2 therapy. We will await further recommendations from photographer apprentice lithographic. --Acute COPD exacerbation. Continue current treatment regimen. --Acute respiratory failure with hypoxia. Continue current treatment regimen. --CKD 2. Stable. We will continue to monitor renal functions. --HYDABURG. Continue supportive care. --Headache. Tylenol as needed. --DVT prophylaxis with heparin subQ Discharge Plan: Home Plan to discharge in: 72 Hours - Advance Directives Does patient have a Living Will: No Does patient have a Durable POA for Healthcare: No - Code Status/Comfort Care Code Status Assessed: Yes Code Status: Full Code Physician Review: Patient Assessed, Agree with Above Assessment and Plan Critical Care: No
[2022-03-23 18:43] LABS: Thyroid Stimulating Hormone 1.68 uIU/mL (0.360-3.740)
[2022-03-23] MEDS: HEPARIN 5000 UNIT/ML 1 ML VIAL SQ SCH (21:00)
[2022-03-23] MEDS ORDERED: FAMOTIDINE 20 MG/2 ML VIAL IV SCH (21:00)
[2022-03-23 23:42] VITALS: BMI 18.6
[2022-03-24 03:49] LABS: Absolute Lymphocytes (CBC) 0.6 K/uL (0.7-4.9); Hematocrit 47.1 % (36.0-45.0); Lymphocytes % 21.7 % (15.3-44.8); MPV 7.9 fL (7.6-11.3); RBC Red Blood Cell Count 5.23 M/uL (3.86-4.86)
[2022-03-24 04:08] LABS: Albumin 3.2 g/dL (3.4-5.0); Bilirubin Total 0.3 mg/dL (0.2-1.0); Potassium 4.1 mmol/L (3.5-5.1); Protein, Total 7.1 g/dL (6.4-8.2)
--- NOTE | 2022-03-24 07:55 | EKG ---
Test Date: 2022-03-23 Test Time: 15:52:04 Academic Support Assistant: LITZY MEASUREMENT RESULTS: Intervals: Rate: 70 MN: 176 QRSD: 80 QT: 380 QTc: 410 [place]: P: 76 MN: 176 QRS: 81 T: 88 INTERPRETIVE STATEMENTS: Normal sinus rhythm Normal ECG Compared to ECG 01/19/2022 20:17:31 Left ventricular hypertrophy no longer present ST (T wave) deviation no longer present Electronically Signed On 03-24-22 07:52:36 CDT by Jose Angeles
[2022-03-24] MEDS ORDERED: PNEUMOCOCCAL VACCINE 0.5 ML IMVAC ONE (08:00)
--- NOTE | 2022-03-24 08:53 | P.CNS ---
Date of Consult: 03/24/22 Reason for Consult: COVID positive Chief Complaint: Cough and sob History of Present Illness: Patient is 81 years of age with a history of COPD presents with cough fatigue generalized constitutional symptoms shortness of breath to be COVID-positive currently stable Allergies No Known Allergies Allergy (Unverified 03/24/22 07:17) Home Medications: NK [No Home Meds] 03/23/22 - Past Medical/Surgical History Diabetic: No -: COPD - Social History Alcohol use: No CD- Drugs: No Caffeine use: Yes Place of Residence: Home Review of Systems General: Weakness Respiratory: Shortness of Breath Physical Examination Temp Pulse Resp BP Pulse Ox 97.8 F 61 16 118/61 96 03/24/22 04:00 03/24/22 04:00 03/24/22 04:00 03/24/22 04:00 03/24/22 04:00 General: Alert, Moderate distress Respiratory: Clear to auscultation bilaterally, Diminished Cardiovascular: No edema, Regular rate/rhythm Laboratory Data (last 24 hrs) 03/23/22 15:57: PT 11.3, INR 1.03 03/23/22 15:57: WBC 3.7 L, Hgb 14.4, Hct 45.2 H, Plt Count 131 L 03/23/22 15:57: Sodium 137, Potassium 3.9, BUN 10, Creatinine 0.71, Glucose 90, Magnesium 2.3, Total Bilirubin 0.3, AST 17, ALT 19, Alkaline Phosphatase 63 - Problems (1) COPD exacerbation Current Visit: Yes Status: Acute Plan: Patient is 81 years of age admitted been sick for the past 4 days M COPD exacerbation COVID-positive no evidence of coronavirus pneumonia vital signs satisfactory continue with steroids bronchodilators DC IV famotidine vital signs stable possibly discharge tomorrow check room air pulse ox not taking any home medications
[2022-03-24] MEDS: HEPARIN 5000 UNIT/ML 1 ML VIAL SQ SCH ×2 (09:25→22:03)
[2022-03-24] MEDS: dexAMETHasone 4 MG TAB PO SCH (09:25)
[2022-03-24] MEDS: ZINC SULFATE 220 MG CAP PO SCH (09:25)
[2022-03-24] MEDS: ASCORBIC ACID 500 MG TABLET PO SCH (09:25)
[2022-03-24] MEDS: THIAMINE HCL 100 MG TABLET PO SCH (09:25)
[2022-03-24] MEDS: VITAMIN D 1000 UNIT TAB PO SCH (09:25)
--- NOTE | 2022-03-24 17:33 | P.PN ---
Subjective Date of Service: 03/26/22 Chief Complaint: Cough and sob Subjective: Improving Physical Examination - Vital Signs Temperature: 97.6 F Blood Pressure: 149/86 Pulse: 68 Respirations: 20 Pulse Ox (%): 94 - Physical Exam General: Alert HEENT: Atraumatic, Normocephalic Respiratory: Diminished Cardiovascular: Regular rate/rhythm, Normal S1 S2 Gastrointestinal: Soft and benign Neurological: Normal speech - Studies Microbiology Data (last 24 hrs): 03/23/22 13:48 Nasopharnyx Influenza Type A Antigen Screen - Final 03/23/22 13:48 Nasopharnyx Influenza Type B Antigen Screen - Final 03/23/22 13:48 Throat Group A Streptococcus Rapid Screen - Final Assessment And Plan - Plan -COVID-19 infection. Pulmonology consulted. Chest x-ray does not indicate any pneumonia. we will continue on steroids, Pepcid\vitamin C\vitamin D\thiamine\zinc and O2 therapy. --Acute COPD exacerbation. Continue current treatment regimen. --Acute respiratory failure with hypoxia. Continue current treatment regimen. --CKD 2. Stable. We will continue to monitor renal functions. --PECHANGA. Continue supportive care. --Headache. Tylenol as needed. --DVT prophylaxis with heparin subQ Physician Review: Patient Assessed, Agree with Above Assessment and Plan
[2022-03-24] MEDS: HYDROCODONE/APAP 5/325 MG TAB PO PRN (22:04)
[2022-03-24] MEDS: BENZONATATE 100 MG CAP PO PRN (22:04)
[2022-03-25] MEDS: ZINC SULFATE 220 MG CAP PO SCH (08:58)
[2022-03-25] MEDS: HEPARIN 5000 UNIT/ML 1 ML VIAL SQ SCH ×2 (08:58→21:44)
[2022-03-25] MEDS: ASCORBIC ACID 500 MG TABLET PO SCH (08:59)
[2022-03-25] MEDS: dexAMETHasone 4 MG TAB PO SCH (08:59)
[2022-03-25] MEDS: THIAMINE HCL 100 MG TABLET PO SCH (09:01)
[2022-03-25] MEDS: VITAMIN D 1000 UNIT TAB PO SCH (09:01)
[2022-03-25 11:27] LABS: Absolute Lymphocytes (CBC) 0.7 K/uL (0.7-4.9); Hematocrit 46.4 % (36.0-45.0); Lymphocytes % 8.4 % (15.3-44.8); MPV 7.9 fL (7.6-11.3); RBC Red Blood Cell Count 5.16 M/uL (3.86-4.86)
[2022-03-25 11:40] LABS: Potassium 4.2 mmol/L (3.5-5.1)
[2022-03-25] MEDS: BENZONATATE 100 MG CAP PO PRN ×2 (12:07→22:40)
[2022-03-25] MEDS: HYDROCODONE/APAP 5/325 MG TAB PO PRN (12:07)
[2022-03-26] MEDS: HEPARIN 5000 UNIT/ML 1 ML VIAL SQ SCH (08:54)
[2022-03-26] MEDS: ZINC SULFATE 220 MG CAP PO SCH (08:54)
[2022-03-26] MEDS: THIAMINE HCL 100 MG TABLET PO SCH (08:54)
[2022-03-26] MEDS: VITAMIN D 1000 UNIT TAB PO SCH (08:54)
[2022-03-26] MEDS: dexAMETHasone 4 MG TAB PO SCH (08:54)
[2022-03-26] MEDS: ASCORBIC ACID 500 MG TABLET PO SCH (08:55)
[2022-03-26] MEDS ORDERED: DULERA 100/5 (MOMETASONE/FORMOTEROL) INHALER IH SCH (13:05)
--- NOTE | 2022-03-26 13:06 | P.PN ---
Subjective Date of Service: 03/26/22 Chief Complaint: COPD exacerbation COVID-positive Subjective: Improving (Patient is improving complaining of cough minimal oxygen) Review of Systems General: Weakness Respiratory: Shortness of Breath Physical Examination - Vital Signs Temperature: 98.3 F Blood Pressure: 147/60 Pulse: 75 Respirations: 16 Pulse Ox (%): 95 - Physical Exam General: Alert, Oriented x3, Cooperative - Studies Microbiology Data (last 24 hrs): 03/23/22 13:48 Throat Culture & Sensitivity - Final NORMAL UPPER RESPIRATORY JEFFRY GROWN. Assessment And Plan - Current Problems (Diagnosis) (1) COPD exacerbation Current Visit: Yes Status: Acute Plan: Patient is doing better complaining of cough signs are stable will not qualify for home O2 vital signs stable patient has a history of tobacco abuse is abuse presumed COPD exacerbation plan for discharge on Decadron bronchodilator follow- up with me in 2 weeks Physician Review: Patient Assessed, Agree with Above Assessment and Plan
--- NOTE | 2022-03-26 14:48 | P.PN ---
Subjective Date of Service: 03/26/22 Chief Complaint: COPD exacerbation COVID-positive Subjective: Improving Physical Examination - Vital Signs Temperature: 98.3 F Blood Pressure: 147/60 Pulse: 75 Respirations: 16 Pulse Ox (%): 95 - Physical Exam General: Alert HEENT: Atraumatic, Normocephalic Neck: Supple Respiratory: Normal air movement Cardiovascular: Regular rate/rhythm, Normal S1 S2 Gastrointestinal: Soft and benign Musculoskeletal: No swelling Neurological: Normal speech - Studies Microbiology Data (last 24 hrs): 03/23/22 13:48 Throat Culture & Sensitivity - Final NORMAL UPPER RESPIRATORY JEFFRY GROWN. Assessment And Plan - Plan -COVID-19 infection. Pulmonology following. we willcontinue presnt care with supportive medicine, steroid and bronchodilators. --Acute COPD exacerbation. Continue current treatment regimen. --Acute respiratory failure with hypoxia. Continue current treatment regimen. --CKD 2. Stable. We will continue to monitor renal functions. --PAMUNKEY. Continue supportive care. --Headache. Tylenol as needed. --DVT prophylaxis with heparin subQ Physician Review: Patient Assessed, Agree with Above Assessment and Plan
--- NOTE | 2022-03-26 14:57 | P.DS ---
Admission Date: 03/23/22 Discharge Date: 03/26/22 Disposition: ROUTINE DISCHARGE Discharge Condition: FAIR Reason for Admission: COPD exacerbation COVID-positive Brief History of Present Illness: Patient is a 81-year-old female with a past medical history significant for COPD who presents with complaint of cough Onset 4 days ago. Patient reports associated signs and symptoms of headache, chills, fatigue, weakness, malaise, chest congestion, shortness of breath and body aches. Patient denies any other signs and symptoms. Symptoms are aggravated or relieved by nothing. Patient decided to present to the hospital due to worsening symptoms. Hospital Course: She tested positive for COVID-19 disease and was deemed to be in acute respiratory failure secondary to COVID-19 disease. She also has concern about COPD exacerbation. She started therapy with steroids, supportive care with vitamin C, vitamin D and ascorbic acid with zinc. She had improvement significantly with supportive therapy and oxygenation and bronchodilator therapy. She was evaluated with pulmonary physician and was deemed to be stable today to continue supportive care and bronchodilator therapy. She will follow-up with pulmonary physician as scheduled within 1 to 2-week of hospital discharge. Vital Signs/Physical Exam: Temp Pulse Resp BP Pulse Ox 98.3 F 75 16 147/60 H 95 03/26/22 14:49 03/26/22 14:49 03/26/22 14:49 03/26/22 14:49 03/26/22 14:49 General: Alert, Oriented x3 HEENT: Atraumatic, Normocephalic Neck: Supple Respiratory: Normal air movement Cardiovascular: Regular rate/rhythm, Normal S1 S2 Gastrointestinal: Soft and benign Neurological: Normal speech, Normal strength at 5/5 x4 extr Laboratory Data at Discharge: WBC 8.6 K/uL (4.3-10.9) D 03/25/22 11:04 Hgb 14.9 g/dL (12.0-15.0) 03/25/22 11:04 Hct 46.4 % (36.0-45.0) H 03/25/22 11:04 Plt Count 191 K/uL (152-406) D 03/25/22 11:04 PT 11.3 SECONDS (9.5-12.5) 03/23/22 15:57 INR 1.03 03/23/22 15:57 Sodium 139 mmol/L (136-145) 03/25/22 11:04 Potassium 4.2 mmol/L (3.5-5.1) 03/25/22 11:04 BUN 22 mg/dL (7-18) H 03/25/22 11:04 Creatinine 0.57 mg/dL (0.55-1.3) 03/25/22 11:04 Glucose 98 mg/dL (74-106) 03/25/22 11:04 Magnesium 2.3 mg/dL (1.8-2.4) 03/23/22 15:57 Total Bilirubin 0.3 mg/dL (0.2-1.0) 03/24/22 03:40 AST 15 U/L (15-37) 03/24/22 03:40 ALT 19 U/L (12-78) 03/24/22 03:40 Alkaline Phosphatase 64 U/L (45-117) 03/24/22 03:40 Home Medications: Ascorbic Acid [Vitamin C*] 500 mg PO DAILY 30 Days #30 tablet 03/26/22 Benzonatate [Tessalon Perle*] 100 mg PO TID PRN 7 Days #21 cap 03/26/22 Cholecalciferol (Vitamin D3) [Vitamin D 1000 Iu Tab*] 1,000 unit PO DAILY 30 Days #30 tab 03/26/22 Mometasone/Formoterol [Dulera 100 Mcg/5 Mcg Inhaler] 2 puff IH BID 30 Days #1 inhaler 03/26/22 Zinc Sulfate [Zinc Sulfate*] 220 mg PO DAILY 30 Days #30 cap 03/26/22 dexAMETHasone [Decadron*] 6 mg PO DAILY 7 Days #7 tab 03/26/22 New Medications: dexAMETHasone [Decadron*] 6 mg PO DAILY 7 Days #7 tab Mometasone/Formoterol [Dulera 100 Mcg/5 Mcg Inhaler] 2 puff IH BID 30 Days #1 inhaler Benzonatate [Tessalon Perle*] 100 mg PO TID PRN 7 Days #21 cap PRN Reason: Cough Ascorbic Acid [Vitamin C*] 500 mg PO DAILY 30 Days #30 tablet Cholecalciferol (Vitamin D3) [Vitamin D 1000 Iu Tab*] 1,000 unit PO DAILY 30 Days #30 tab Zinc Sulfate [Zinc Sulfate*] 220 mg PO DAILY 30 Days #30 cap Diet: Regular Activity: Ad torrey Followup: Kelechi Acosta MD [ACTIVE - CAN ADMIT] -
[2022-03-26 15:52] VITALS: BP 141/71; TEMP 98.6
[2022-03-26 17:27] VITALS: O2SAT 93
== END 2022-03-26 16:55 | disposition home or self-care (01) | DRG 177 ==
LOC: ER 13:22 → ERHOLD 17:39 → 4TH 19:44
PROVIDERS: ADMIT Internal Medicine Nephrology; ATTEND Internal Medicine Nephrology
DX: U07.1 COVID-19 (principal); J96.01 Acute respiratory failure with hypoxia; J44.1 Chronic obstructive pulmonary disease with (acute) exacerbation; N18.2 Chronic kidney disease, stage 2 (mild); R51.9 Headache, unspecified; Z87.891 Personal history of nicotine dependence
CPT/HCPCS: 36415; 71045; 80048; 80053; 80076; 83735; 83880; 84439; 84443; 84484; 85025; 85610; 87070; 87081; 87804; 93005; 96374; 99285; J1100; J1644; J3490; J3535; J8540; U0003

== ENCOUNTER 2022-09-22 21:38 | Emergency (ER) | payer OTHER ==
[2022-09-22] MEDS ORDERED: IPRATROPIUM BROM 0.5MG/2.5ML ONE (22:49)
[2022-09-22] MEDS ORDERED: ALBUTEROL 2.5 MG/3 ML NEB SOL ONE (22:49)
[2022-09-22 23:03] LABS: Hematocrit 43.5 % (36.0-45.0); Lymphocytes % 28.2 % (15.3-44.8); MCV 88.8 fL (80-100); MPV 7.7 fL (7.6-11.3); RBC Red Blood Cell Count 4.89 M/uL (3.86-4.86)
[2022-09-22 23:16] LABS: Magnesium 2.1 mg/dL (1.8-2.4); Potassium 4.3 mmol/L (3.5-5.1); Troponin High Sensitivity 6.6 pg/mL (<58.9)
[2022-09-22 23:33] LABS: SARS-COV-2 RT PCR NEGATIVE (NEGATIVE)
--- NOTE | 2022-09-22 23:59 | ER ---
Nurse's Notes [facility] Name: Maral Cain Age: 82 yrs Sex: Female : 1940 Arrival Date: 09/22/2022 Time: 21:44 Bed 8 Private MD: Diagnosis: Acute upper respiratory infection, unspecified;COPD/ Chronic obstructive pulmonary disease, unspecified Presentation: 09/22 21:57 Chief complaint: Patient states: she has had a cough and congestion for several days bb denies fever. Coronavirus screen: Client presents with at least one sign or symptom that may indicate coronavirus-19. Ebola Screen: No symptoms or risks identified at this time. Resp Distress? No respiratory distress is noted at this time. Initial Sepsis Screen: Does the patient meet any 2 criteria? No. Patient's initial sepsis screen is negative. Does the patient have a suspected source of infection? No. Patient's initial sepsis screen is negative. Risk Assessment: Do you want to hurt yourself or someone else? Patient reports no desire to harm self or others. Onset of symptoms was September 2022. 21:57 Method Of Arrival: Wheelchair bb 21:57 Acuity: RADHA 3 bb Historical: - Allergies: 21:59 No Known Allergies; bb - Home Meds: 21:59 None [Active]; bb - PMHx: 21:59 COPD; bb - PSHx: 21:59 gastric ulcer perforation; bb - Immunization history:: Client reports having NOT received the Covid vaccine. - Social history:: Smoking status: Patient/guardian denies using tobacco, the patient reports quitting approximately 5 years ago. Screenin/08 00:38 Abuse screen: Denies threats or abuse. Denies injuries from another. Nutritional ll3 screening: No deficits noted. Tuberculosis screening: No symptoms or risk factors identified. Fall Risk No fall in past 12 months (0 pts). No secondary diagnosis (0 pts). IV access (20 points). Ambulatory Aid- Crutches/Cane/Walker (15 pts). Gait- Normal/Bed Rest/Wheelchair (0 pts) Mental Status- Oriented to own ability (0 pts). Total [place] Fall Scale indicates Low Risk Score (25-44 pts). Fall prevention measures have been instituted. Side Rails Up X 2 Placed close to Nursing Station Family Present and informed to notify staff if they need to leave bedside As available Patient and Family Educated on Fall Prevention Program and strategies. Assessment: 09/22 22:30 General: Appears in no apparent distress. uncomfortable, Behavior is calm, cooperative. ll3 Pain: Denies pain. Neuro: Level of Consciousness is awake, alert, obeys commands, Oriented to person, place, time, situation. Cardiovascular: Patient's skin is warm and dry. Rhythm is sinus rhythm. Respiratory: Reports shortness of breath cough that is Respiratory effort is even, unlabored, Respiratory pattern is regular, symmetrical, Derm: Skin is pink, warm \T\ dry. Vital Signs: 21:57 BP 113 / 94; Pulse 73; Resp 20 S; Temp 98.5(O); Pulse Ox 90% on R/A; Weight 54.43 kg bb (R); Height 5 ft. 6 in. (167.64 cm) (R); Pain 0/10; 22:30 BP 172 / 91; Pulse 73; Resp 23; Pulse Ox 100% on Nebulizer Mask; ll3 23:30 BP 161 / 71; Pulse 65; Resp 21; Pulse Ox 99% ; ll3 09/23 00:40 BP 147 / 68; Pulse 91; Resp 21; Pulse Ox 99% on R/A; ll3 09/22 21:57 Body Mass Index 19.37 (54.43 kg, 167.64 cm) bb ED Course: 09/22 21:44 Patient arrived in ED. ja2 21:59 Triage completed. bb 21:59 Arm band placed on Patient placed in an exam room, on a stretcher, on oxygen, on bb hall monitor, on pulse oximetry. Family accompanied patient. 22:02 Renee Dolan PA-C is PHCP. sb4 22:02 Darwin Lance MD is Attending Physician. sb4 22:13 Assisted to bathroom. tw5 22:59 Initial lab(s) drawn, by me, sent to lab. Inserted saline lock: 22 gauge in right ll3 forearm, using aseptic technique. Blood collected. 23:27 XRAY Chest (1 view) In Process Unspecified. EDMS 23:58 Ranjit Pickering DO is Referral Physician. sb4 23:58 Kleechi Acosta MD is Referral Physician. sb4 09/23 00:38 Patient has correct armband on for positive identification. Placed in gown. Bed in low ll3 position. Call light in reach. Side rails up X 1. Adult w/ patient. 00:38 No provider procedures requiring assistance completed. IV discontinued, intact, ll3 bleeding controlled, No redness/swelling at site. Pressure dressing applied. Administered Medications: 09/22 22:59 Drug: Albuterol - atroVENT (ipratropium) (3:1) (2.5 mg - 0.5 mg) 3 ml Route: Nebulizer; ll3 Medication: 09/23 00:40 VIS not applicable for this client. ll3 Outcome: 09/22 23:59 Discharge ordered by MD. sb4 09/23 00:38 Discharged to home via wheelchair, with family. ll3 Condition: stable Discharge instructions given to patient, family, Instructed on discharge instructions, follow up and referral plans. medication usage, Demonstrated understanding of instructions, follow-up care, medications, Prescriptions given X 3. 00:40 Patient left the ED. ll3 Signatures: Dispatcher [employer] Louise Villafuerte RN RN bb Alexander, Jessica ja2 Wood, Tiffany Skyler Ramirez RN RN ll3 Renee Dolan, PA-C PAFanynC sb4 Corrections: (The following items were deleted from the chart) 09/22 22:01 21:59 PSHx: Appendectomy; janki shearer
--- NOTE | 2022-09-22 23:59 | EDPHYS ---
Physician Documentation [facility] Name: Maral Cain Age: 82 yrs Sex: Female : 1940 Arrival Date: 09/22/2022 Time: 21:44 Bed 8 Private MD: ED Physician Darwin Lance HPI: 09/22 22:32 This 82 yrs old Female presents to ER via Wheelchair with complaints of Cough, sb4 Congestion, Shortness Of Breath. 22:32 The patient or guardian reports cough, that is intermittent. Onset: The sb4 symptoms/episode began/occurred 2 day(s) ago. 22:32 Associated signs and symptoms: Pertinent negatives: chest pain, sore throat, vomiting. sb4 The patient has not recently seen a physician. Patient's daughter reports that there has been a URI in the household. States they tested negative for covid/flu. Patient has a history of COPD but recently ran out of her inhaler. 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 Denies fever, chest pain. She was noted to be hypoxic at 87% on room air upon arrival and hypertensive with BP 180s systolic.. Historical: - Allergies: 21:59 No Known Allergies; bb - Home Meds: 21:59 None [Active]; bb - PMHx: 21:59 COPD; bb - PSHx: 21:59 gastric ulcer perforation; bb - Immunization history:: Client reports having NOT received the Covid vaccine. - Social history:: Smoking status: Patient/guardian denies using tobacco, the patient reports quitting approximately 5 years ago. ROS: 22:32 Constitutional: Negative for fever, chills, and weight loss, Eyes: Negative for injury, sb4 pain, redness, and discharge, Cardiovascular: Negative for chest pain, palpitations, and edema, Abdomen/GI: Negative for abdominal pain, nausea, vomiting, diarrhea, and constipation, MS/Extremity: Negative for injury and deformity, Skin: Negative for injury, rash, and discoloration. 23:53 Respiratory: Positive for cough, dyspnea on exertion, shortness of breath, Negative for sb4 hemoptysis, wheezing. Exam: 22:32 Respiratory: the patient does not display signs of respiratory distress, Respirations: sb4 normal, Breath sounds: are clear throughout. 22:35 Constitutional: This is a well developed, well nourished patient who is awake, alert, sb4 and in no acute distress. Head/Face: Normocephalic, atraumatic. Eyes: Pupils equal round and reactive to light, extra-ocular motions intact. Periorbital areas with no swelling, redness, or edema. ENT: Mucous membranes moist. Cardiovascular: Regular rate and rhythm with a normal S1 and S2. Abdomen/GI: Soft, non-tender, no distension. 23:52 Skin: Warm, dry with normal turgor. Normal color with no rashes, no lesions, and no sb4 evidence of cellulitis. MS/ Extremity: Pulses equal, no cyanosis. Neurovascular intact. Full, normal range of motion. Vital Signs: 21:57 BP 113 / 94; Pulse 73; Resp 20 S; Temp 98.5(O); Pulse Ox 90% on R/A; Weight 54.43 kg bb (R); Height 5 ft. 6 in. (167.64 cm) (R); Pain 0/10; 22:30 BP 172 / 91; Pulse 73; Resp 23; Pulse Ox 100% on Nebulizer Mask; ll3 23:30 BP 161 / 71; Pulse 65; Resp 21; Pulse Ox 99% ; ll3 12 00:40 BP 147 / 68; Pulse 91; Resp 21; Pulse Ox 99% on R/A; ll3 09/22 21:57 Body Mass Index 19.37 (54.43 kg, 167.64 cm) bb MDM: 09/22 22:02 Patient medically screened. sb4 23:57 Data reviewed: vital signs, nurses notes, lab test result(s), cardiac enzymes, CBC, sb4 electrolytes, Flu: EKG, radiologic studies, plain films, and as a result, I will discharge patient. Test interpretation: by ED physician or midlevel provider: ECG. Medication response: albuterol nebulizer treatment(s) markedly relieved the patient's wheezing. Response to treatment: the patient's symptoms have markedly improved after treatment. 09/22 22:23 Order name: COVID-19/FLU A+B; Complete Time: 23:41 sb4 12 22:30 Order name: Basic Metabolic Panel; Complete Time: 23:41 sb4 09/22 22:30 Order name: CBC with Diff; Complete Time: 23:41 sb4 09/22 22:30 Order name: Magnesium; Complete Time: 23:41 sb4 09/22 22:30 Order name: NT PRO-BNP; Complete Time: 23:41 sb4 09/22 22:30 Order name: Troponin HS; Complete Time: 23:41 sb4 09/22 22:30 Order name: XRAY Chest (1 view) sb4 09/22 22:30 Order name: EKG; Complete Time: 22:30 sb4 09/22 22:30 Order name: Cardiac monitoring; Complete Time: 22:59 sb4 09/22 22:30 Order name: EKG - Nurse/Tech; Complete Time: 22:59 sb4 09/22 22:30 Order name: IV Saline Lock; Complete Time: 22:59 sb4 09/22 22:32 Order name: Strep; Complete Time: 00:18 sb4 09/23 00:19 Order name: Throat Culture EDMI 09/22 22:30 Order name: Labs collected and sent; Complete Time: 22:59 sb4 09/22 22:30 Order name: O2 Per Protocol; Complete Time: 22:59 sb4 09/22 22:30 Order name: O2 Sat Monitoring; Complete Time: 22:59 sb4 Administered Medications: 22:59 Drug: Albuterol - atroVENT (ipratropium) (3:1) (2.5 mg - 0.5 mg) 3 ml Route: Nebulizer; ll3 Disposition Summary: 09/22/22 23:59 Discharge Ordered Location: Home sb4 Problem: an acute exacerbation sb4 Symptoms: have improved sb4 Condition: Stable sb4 Diagnosis - Acute upper respiratory infection, unspecified sb4 - COPD/ Chronic obstructive pulmonary disease, unspecified sb4 Followup: sb4 - With: Ranjit Pickering DO - When: As needed - Reason: Recheck today's complaints, Continuance of care, Re-evaluation by your physician Followup: sb4 - With: Kelechi Acosta MD - When: 2 - 3 days - Reason: Recheck today's complaints, Continuance of care, Re-evaluation by your physician Discharge Instructions: - Discharge Summary Sheet sb4 - Chronic Obstructive Pulmonary Disease sb4 - Upper Respiratory Infection, Adult, [id number] sb4 Forms: - Medication Reconciliation Form sb4 - Thank You Letter sb4 - Antibiotic Education sb4 - Prescription Opioid Use sb4 Prescriptions: - albuterol sulfate 90 mcg/actuation Inhalation HFA aerosol inhaler - inhale 1 puff by INHALATION route every 4-6 hours As needed; 1 Inhaler; sb4 Refills: 0, Product Selection Permitted - Albuterol Sulfate 2 mg Oral Tablet - take 1 tablet by ORAL route every 6 hours for 10 days; 40 tablet; Refills: 0, sb4 Product Selection Permitted - Prednisone 20 mg Oral Tablet - take 1 tablet by ORAL route once daily for 5 days; 5 tablet; Refills: 0, sb4 Product Selection Permitted - Tessalon Perles 100 mg Oral Capsule - take 1 capsule by ORAL route every 8 hours As needed; 15 capsule; Refills: 0, sb4 Product Selection Permitted Signatures: Dispatcher [employer] Louise Villafuerte RN RN bb Loubet, Lynsea, RN RN ll3 Renee Dolan, SHANNON ORTEGA sb4 Corrections: (The following items were deleted from the chart) 22:01 21:59 PSHx: Appendectomy; janki shearer 22:35 22:32 Abdomen/GI: sb4 sb4 22:35 22:32 Respiratory: sb4 sb4
[2022-09-23 06:14] VITALS: TEMP 98.5
[2022-09-23 06:21] VITALS: BP 172/91; O2SAT 100
--- NOTE | 2022-09-23 12:16 | RAD REPORT ---
EXAM DESCRIPTION: RAD - Chest Single View - 09/22/2022 11:25 pm CLINICAL HISTORY: 82 years Female COPD TECHNIQUE: One view of the chest. COMPARISON: No prior exams provided for comparison. FINDINGS: The lungs are hyperinflated and clear without focal consolidation, effusion, or pneumothor ax. The cardiomediastinal silhouette and central pulmonary vasculature are normal. No acute osseous a bnormalities. IMPRESSION: No acute cardiopulmonary abnormalities. COPD. Electronically signed by: Iqra Villalobos MD 09/22/2022 11:51 PM TECHNOLOGY TEACHER Due to temporary technical issues with the PACS/Fluency reporting system, reports are being signed by the in house radiologists without review as a courtesy to insure prompt reporting. The interpreting radiologist is fully responsible for the content of the report.
--- NOTE | 2022-09-23 16:00 | EKG ---
Test Date: 2022-09-22 Test Time: 22:52:50 Silverware Washer: LL MEASUREMENT RESULTS: Intervals: Rate: 67 AR: 160 QRSD: 86 QT: 390 QTc: 412 [place]: P: 72 AR: 160 QRS: 77 T: 83 INTERPRETIVE STATEMENTS: Normal sinus rhythm Normal ECG Compared to ECG 03/23/2022 15:52:04 No significant changes Electronically Signed On 09-23-22 15:59:42 MANAGER WELLNESS by Zack Hathaway
== END 2022-09-23 00:40 | disposition home or self-care (01) ==
LOC: ER 21:38
DX: J44.1 Chronic obstructive pulmonary disease with (acute) exacerbation (principal); J06.9 Acute upper respiratory infection, unspecified; Z20.822 Contact with and (suspected) exposure to COVID-19
CPT/HCPCS: 93005; 87070; 85025; 80048; 36415; 83735; 87081; 84484; 83880; 0240U; 71045; 94640; 99285; J7613; J7644

== ENCOUNTER 2023-06-19 22:30 | Observation (INO) | payer OTHER ==
--- OUTSIDE RECORDS SUMMARY | 2023-06-19 22:34 | XMS REPORT | Continuity of Care Document ---
:1940 Author Organization [facility] t Address [address] [place] [address] [place] [id number] Care Team Providers Name Role Phone Joanne PHOTOGRAPHER'S ASSISTANTEver Primary Care Physician EVER ALBRIGHT Attending Clinician Unavailable EVER ALBRIGHT Attending Clinician Unavailable APRIL CALVILLO Attending Clinician Unavailable APRIL CALVILLO Attending Clinician Unavailable Pob, [facility] Lab Main Attending Clinician Unavailable Payers Payer Name Policy Type Policy Number Effective Date Expiration Date Layne arcos [facility] [id number] 2022 2023 ADVANTAGE CHOICE 00:00:00 00:00:00 PPO Problems This patient has no known problems. Allergies, Adverse Reactions, Alerts Allergy Allergy Status Severity Reaction(s) Onset Inactive Treating Comm ents Source Name Type Date Date Clinician NO KNOWN Drug Active Univers ALLERGIE Class ity of S [facility] Social History Social Habit Start Date Stop Date Quantity Comments Source Gender identity Universit y of [facility] Sexual orientation Univer sity [facility] Cigarettes smoked 2023-06-14 2023-06-14 Univers ity of current (pack per 00:00:00 00:00:00 ) - Reported Branch Cigarette 2023-06-14 2023-06-14 University of pack-years 00:00:00 00:00:00 [facility] Tobacco use and 2023-06-14 2023-06-14 Smokeless Universit y of exposure 00:00:00 00:00:00 tobacco non-user [facility] [place] Alcohol intake 2023-06-14 2023-06-14 Ex-drinker University 00:00:00 00:00:00 (finding) [facility] History of Social 2023-06-14 2023-06-14 Univers ity of function 00:00:00 00:00:00 [facility] Alcohol Comment 2023-06-14 2023-06-14 quit Universit y of 00:00:00 00:00:00 [facility] History of tobacco 2020-05-29 Cigarette Smoker University of use 00:00:00 [facility] Sex Ass[birth year] Universit y of 00:00:00 00:00:00 [facility] Smoking Status Start Date Stop Date Source Ex-smoker 2023-06-14 00:00:00 2023-06-14 00:00:00 Universi ty of [facility] Medications Ordered Filled Start Stop Current Ordering Indication Dosage Frequency Signature Comments Components Source Medication Medication Date Date Medication? Clinician (SIG) Name Name steve Yes [id number] Take 1 Univers rol, 06-17 capsule by ity of vitamin d2, 00:00: mouth [place] (VITAMIN 00 weekly. Medical D2) 1,250 Branch mcg (50,000 unit) capsule Nebulizer Yes [id number] Use as U nivers Accessories 06-17 directed ity of Kit 00:00: [place] 00 Medical Branch Nebulizer 2022- No [id number] Use as Univers Accessories 06-17 directed ity of Kit 00:00: 00:00 [place] 00 :00 Medical Branch Nebulizer 0 Yes [id number] Use as U nivers Accessories 06-14 directed ity of Kit 00:00: [place] 00 Medical Branch ipratropium Yes [id number] .5mg Inhale 2.5 Univers 0.02 % 8-29 mL every 4 ity of nebulizer 00:00: (four) [place] solution 00 hours as Medical needed for Branch Wheezing or Shortness of Breath. albuterol Yes [id number] 2.5mg Inhale 3 Univers 2.5 mg /3 8-29 mL every 4 ity of mL (0.083 00:00: (four) [place] %) 00 hours as Medical nebulizer needed for Bran ch solution Wheezing or Shortness of Breath. donepeziL 5 0 Yes [id number] 5mg Take 1 Univers mg tablet 8-29 tablet by ity o f 00:00: mouth at [place] [address] bedtime. Medical Branch predniSONE 2022-0 Yes [id number] 20mg Take 1 Univers 20 mg 8-29 tablet by ity of tablet 00:00: mouth in [place] 00 the Medical morning. Branch cyproheptad 2022- Yes [id number] 4mg Take 1 Univers ine 4 mg 8-29 tablet by ity of tablet 00:00: mouth in [place] 00 the Medical morning Branch and 1 tablet in the evening. Walker Yes [id number] Use as Unive rs (ULTRA-LIGH 06-14 directed ity of T ROLLATOR) 00:00: [place] Mis 00 Medical Branch albuterol 0 Yes [id number] 2{puff} Inhale 2 Univers 90 8-29 Puffs ity of mcg/actuati 00:00: every 6 [place] as on inhaler 00 (six) Medical hours as Branch needed for Wheezing, Shortness of Breath or Chest tightness. Nebulizer Yes [id number] Use as U nivers Accessories 06-14 directed ity of Kit 00:00: [place] 00 Medical Branch ipratropium 0 Yes [id number] .5mg Inhale 2.5 Univers 0.02 % 8-29 mL every 4 ity of nebulizer 00:00: (four) [place] solution 00 hours as Medical needed for Branch Wheezing or Shortness of Breath. albuterol 0 Yes [id number] 2.5mg Inhale 3 Univers 2.5 mg /3 8-29 mL every 4 ity of mL (0.083 00:00: (four) [place] %) 00 hours as Medical nebulizer needed for Bran ch solution Wheezing or Shortness of Breath. donepeziL 5 0 Yes [id number] 5mg Take 1 Univers mg tablet 8-29 tablet by ity o f 00:00: mouth at [place] [address] bedtime. Medical Branch predniSONE 2022-0 Yes [id number] 20mg Take 1 Univers 20 mg 8-29 tablet by ity of tablet 00:00: mouth in [place] 00 the Medical morning. Branch cyproheptad 2022-0 Yes [id number] 4mg Take 1 Univers ine 4 mg 8-29 tablet by ity of tablet 00:00: mouth in [place] 00 the Medical morning Branch and 1 tablet in the evening. Adams 2022-0 Yes [id number] Use as Unive rs (ULTRA-LIGH 8-29 directed ity of T ROLLATOR) 00:00: [place] [facility] 00 Medical Branch albuterol 2022-0 Yes [id number] 2{puff} Inhale 2 Univers 90 8-29 Puffs ity of mcg/actuati 00:00: every 6 [place] as on inhaler 00 (six) Medical hours as Branch needed for Wheezing, Shortness of Breath or Chest tightness. ipratropium 0 Yes [id number] .5mg Inhale 2.5 Univers 0.02 % 8-29 mL every 4 ity of nebulizer 00:00: (four) [place] solution 00 hours as Medical needed for Branch Wheezing or Shortness of Breath. albuterol 0 Yes [id number] 2.5mg Inhale 3 Univers 2.5 mg /3 8-29 mL every 4 ity of mL (0.083 00:00: (four) [place] %) 00 hours as Medical nebulizer needed for Bran ch solution Wheezing or Shortness of Breath. donepeziL 5 2022-0 Yes [id number] 5mg Take 1 Univers mg tablet 8-29 tablet by ity o f 00:00: mouth at [place] [address] bedtime. Medical Branch predniSONE 2022-0 Yes [id number] 20mg Take 1 Univers 20 mg 8-29 tablet by ity of tablet 00:00: mouth in [place] 00 the Medical morning. Branch cyproheptad 2022-0 Yes [id number] 4mg Take 1 Univers ine 4 mg 8-29 tablet by ity of tablet 00:00: mouth in [place] 00 the Medical morning Branch and 1 tablet in the evening. Adams 2022-0 Yes [id number] Use as Unive rs (ULTRA-LIGH 8-29 directed ity of T ROLLATOR) 00:00: [place] [facility] 00 Medical Branch albuterol 2022-0 Yes [id number] 2{puff} Inhale 2 Univers 90 8-29 Puffs ity of mcg/actuati 00:00: every 6 [place] as on inhaler 00 (six) Medical hours as Branch needed for Wheezing, Shortness of Breath or Chest tightness. Nebulizer 2022-0 Yes [id number] Use as U nivers Accessories 8-29 directed ity of Kit 00:00: [place] 00 Medical Branch ipratropium 2022-0 Yes [id number] .5mg Inhale 2.5 Univers 0.02 % 8-29 mL every 4 ity of nebulizer 00:00: (four) [place] solution 00 hours as Medical needed for Branch Wheezing or Shortness of Breath. albuterol 2022-0 Yes [id number] 2.5mg Inhale 3 Univers 2.5 mg /3 8-29 mL every 4 ity of mL (0.083 00:00: (four) [place] %) 00 hours as Medical nebulizer needed for Bran ch solution Wheezing or Shortness of Breath. donepeziL 5 2022-0 Yes [id number] 5mg Take 1 Univers mg tablet 8-29 tablet by ity o f 00:00: mouth at [place] [address] bedtime. Medical Branch predniSONE 2022-0 Yes [id number] 20mg Take 1 Univers 20 mg 8-29 tablet by ity of tablet 00:00: mouth in [place] 00 the Medical morning. Branch cyproheptad 2022-0 Yes [id number] 4mg Take 1 Univers ine 4 mg 8-29 tablet by ity of tablet 00:00: mouth in [place] 00 the Medical morning Branch and 1 tablet in the evening. albuterol 2022-0 Yes [id number] 2{puff} Inhale 2 Univers 90 8-29 Puffs ity of mcg/actuati 00:00: every 6 [place] as on inhaler 00 (six) Medical hours as Branch needed for Wheezing, Shortness of Breath or Chest tightness. Nebulizer 2022-0 Yes [id number] Use as U nivers Accessories 8-29 directed ity of Kit 00:00: [place] 00 Medical Branch ipratropium 2022-0 Yes [id number] .5mg Inhale 2.5 Univers 0.02 % 8-29 mL every 4 ity of nebulizer 00:00: (four) [place] solution 00 hours as Medical needed for Branch Wheezing or Shortness of Breath. albuterol 2022-0 Yes [id number] 2.5mg Inhale 3 Univers 2.5 mg /3 8-29 mL every 4 ity of mL (0.083 00:00: (four) [place] %) 00 hours as Medical nebulizer needed for Bran ch solution Wheezing or Shortness of Breath. donepeziL 5 2022-0 Yes [id number] 5mg Take 1 Univers mg tablet 8-29 tablet by ity o f 00:00: mouth at [place] [address] bedtime. Medical Branch predniSONE 2022-0 Yes [id number] 20mg Take 1 Univers 20 mg 8-29 tablet by ity of tablet 00:00: mouth in [place] 00 the Medical morning. Branch cyproheptad 2022-0 Yes [id number] 4mg Take 1 Univers ine 4 mg 8-29 tablet by ity of tablet 00:00: mouth in [place] 00 the Medical morning Branch and 1 tablet in the evening. Walker 2022-0 Yes [id number] Use as Unive rs (ULTRA-LIGH 8-29 directed ity of T ROLLATOR) 00:00: [place] [facility] 00 Medical Branch albuterol 2022-0 Yes [id number] 2{puff} Inhale 2 Univers 90 8-29 Puffs ity of mcg/actuati 00:00: every 6 [place] as on inhaler 00 (six) Medical hours as Branch needed for Wheezing, Shortness of Breath or Chest tightness. Nebulizer Yes [id number] Use as U nivers Accessories 8-29 directed ity of Kit 00:00: [place] 00 Medical Branch ipratropium 2022-0 Yes [id number] .5mg Inhale 2.5 Univers 0.02 % 8-29 mL every 4 ity of nebulizer 00:00: (four) [place] solution 00 hours as Medical needed for Branch Wheezing or Shortness of Breath. albuterol 0 Yes [id number] 2.5mg Inhale 3 Univers 2.5 mg /3 8-29 mL every 4 ity of mL (0.083 00:00: (four) [place] %) 00 hours as Medical nebulizer needed for Bran ch solution Wheezing or Shortness of Breath. donepeziL 5 2022-0 Yes [id number] 5mg Take 1 Univers mg tablet 8-29 tablet by ity o f 00:00: mouth at [place] [address] bedtime. Medical Branch predniSONE 2022-0 Yes [id number] 20mg Take 1 Univers 20 mg 8-29 tablet by ity of tablet 00:00: mouth in [place] 00 the Medical morning. Branch cyproheptad Yes [id number] 4mg Take 1 Univers ine 4 mg 8-29 tablet by ity of tablet 00:00: mouth in [place] 00 the Medical morning Branch and 1 tablet in the evening. Adams 0 Yes [id number] Use as Unive rs (ULTRA-LIGH 8-29 directed ity of T ROLLATOR) 00:00: [place] [facility] 00 Medical Branch albuterol 0 Yes [id number] 2{puff} Inhale 2 Univers 90 8-29 Puffs ity of mcg/actuati 00:00: every 6 [place] as on inhaler 00 (six) Medical hours as Branch needed for Wheezing, Shortness of Breath or Chest tightness. Nebulizer Yes [id number] Use as U nivers Accessories 8 directed ity of Kit 00:00: [place] [address] Medical Branch ipratropium 0 Yes [id number] .5mg Inhale 2.5 Univers 0.02 % 8-29 mL every 4 ity of nebulizer 00:00: (four) [place] solution 00 hours as Medical needed for Branch Wheezing or Shortness of Breath. albuterol Yes [id number] 2.5mg Inhale 3 Univers 2.5 mg /3 8-29 mL every 4 ity of mL (0.083 00:00: (four) [place] %) 00 hours as Medical nebulizer needed for Bran ch solution Wheezing or Shortness of Breath. donepeziL 5 0 Yes [id number] 5mg Take 1 Univers mg tablet 8-29 tablet by ity o f 00:00: mouth at [place] [address] bedtime. Medical Branch predniSONE 2022-0 Yes [id number] 20mg Take 1 Univers 20 mg 8-29 tablet by ity of tablet 00:00: mouth in [place] [address] the Medical morning. Branch cyproheptad Yes [id number] 4mg Take 1 Univers ine 4 mg 8-29 tablet by ity of tablet 00:00: mouth in [place] 00 the Medical morning Branch and 1 tablet in the evening. Walker 2022-0 Yes [id number] Use as Unive rs (ULTRA-LIGH 8-29 directed ity of T ROLLATOR) 00:00: [place] [facility] 00 Medical Branch albuterol Yes [id number] 2{puff} Inhale 2 Univers 90 8-29 Puffs ity of mcg/actuati 00:00: every 6 [place] as on inhaler 00 (six) Medical hours as Branch needed for Wheezing, Shortness of Breath or Chest tightness. Nebulizer 0 Yes [id number] Use as U nivers Accessories 06-14 directed ity of Kit 00:00: [place] 00 Medical Branch ipratropium 0 Yes [id number] .5mg Inhale 2.5 Univers 0.02 % 8-29 mL every 4 ity of nebulizer 00:00: (four) [place] solution 00 hours as Medical needed for Branch Wheezing or Shortness of Breath. albuterol Yes [id number] 2.5mg Inhale 3 Univers 2.5 mg /3 8-29 mL every 4 ity of mL (0.083 00:00: (four) [place] %) 00 hours as Medical nebulizer needed for Bran ch solution Wheezing or Shortness of Breath. donepeziL 5 0 Yes [id number] 5mg Take 1 Univers mg tablet 8-29 tablet by ity o f 00:00: mouth at [place] [address] bedtime. Medical Branch predniSONE 0 Yes [id number] 20mg Take 1 Univers 20 mg 8-29 tablet by ity of tablet 00:00: mouth in [place] 00 the Medical morning. Branch cyproheptad 0 Yes [id number] 4mg Take 1 Univers ine 4 mg 8-29 tablet by ity of tablet 00:00: mouth in [place] 00 the Medical morning Branch and 1 tablet in the evening. albuterol Yes [id number] 2{puff} Inhale 2 Univers 90 8-29 Puffs ity of mcg/actuati 00:00: every 6 [place] as on inhaler 00 (six) Medical hours as Branch needed for Wheezing, Shortness of Breath or Chest tightness. Nebulizer 2022- No [id number] Use as Univers Accessories 06-14 directed ity of Kit 00:00: 00:00 [place] 00 :00 Medical Branch mirtazapine 0 2022- No [id number] 7.5mg Take 1 Univers 7.5 mg 8-29 08-29 tablet by ity of tablet 00:00: 00:00 mouth at [place] 00 :00 bedtime. Medical Branch mirtazapine 2022- No [id number] 7.5mg Take 1 Univers 7.5 mg 8-06-14 tablet by ity of tablet 00:00: 00:00 mouth at [place] 00 :00 bedtime. Medical Branch mirtazapine 2022- No [id number] 7.5mg Take 1 Univers 7.5 mg 8-06-14 tablet by ity of tablet 00:00: 00:00 mouth at [place] 00 :00 bedtime. Medical Branch mirtazapine 2022- No [id number] 7.5mg Take 1 Univers 7.5 mg 06-14 tablet by ity of tablet 00:00: 00:00 mouth at [place] 00 :00 bedtime. Medical [place] Vital Signs Vital Name Observation Time Observation Value Comments Source Systolic blood 2023-06-14 19:00:00 134 mm[Hg] Univer sity of pressure [facility] Diastolic blood 2023-06-14 19:00:00 70 mm[facility]Hg[facility] [place] [facility] Heart rate 2023-06-14 19:00:00 73 /min [facility] Body temperature 2023-06-14 19:00:00 36.39 Noelle [facility] Respiratory rate 2023-06-14 19:00:00 18 /min [facility] Body height 2023-06-14 19:00:00 167.6 cm [facility] Body weight 2023-06-14 19:00:00 40.688 kg [facility] BMI 2023-06-14 19:00:00 14.48 kg/m2 [facility] Oxygen saturation in 2023-06-14 19:00:00 92 /min [facility] Arterial blood by [facility] Pulse oximetry Branch Procedures Procedure Date / Time Performing Clinician Source Performed FREE T4 2023-06-14 20:45:00 Ever Albright [facility] COMP. METABOLIC PANEL 2023-06-14 20:45:00 Ever Albright [facility] ([id number]) [facility] LIPID PANEL 2023-06-14 20:45:00 Ever Albright [facility] ([id number])(TOTAL Medical Branch CHOLESTEROL, TRIGLYCERIDES, HDL) FREE T3 2023-06-14 20:45:00 Ever Albright [facility] CBC WITH DIFF 2023-06-14 20:45:00 Ever Albright [facility] GLYCOSYLATED HEMOGLOBIN 2023-06-14 20:45:00 Ever Albright [facility] (A1C) [facility] XR CHEST 2 VW 2023-06-14 20:37:08 Ever Albright [facility] Encounters Start End Encounter Admission Attending Care Care Encounter Source Date/Time Date/Time Type Type Clinicians Facility Department ID 2023-07-13 2023-07-13 Outpatient R [facility] [id number] Univers 13:45:00 13:45:00 ity [facility] 2023-06-14 2023-06-14 Outpatient R EVER ALBRIGHT [facility] [id number] Univers 15:17:08 23:59:00 EVER ALBRIGHT ity [facility] 2023-06-14 2023[facility]14 [facility] [id number] Univers 15:15:00 23:59:00 Encounter Ever [place] [id number] ity [facility] 4.2.7.2.686 [facility] [id number] [facility] 807 Branch 2023-06-14 2023-06-14 [employer] Anjum, Jem Lab Main [facility] [id number] Univers 15:30:00 15:45:00 [facility]2.7[facility]2.686 [facility] PROFESSIO [id number] Ut dical [facility] 353 Branch BUILDING 2023-06-14 2023-06-14 Office Joanne [facility] [id number] Univers 13:30:00 14:59:12 Visit Ever [place] [id number] ity [place] [id number] Ut dical NAL 044 [facility] 2023-06-14 2023-06-14 Telephone BRYAN Albright [id number] [facility] 00:00:00 00:00:00 Ever [place] [id number] ity [facility] 4.2.[place].2.[place] [id number] Ut dical NAL 231 [facility] Results Test Description Test Time Test Comments Results Result Comments Source FREE T4 2023-06-15 00:30:44 Test Item Value Reference Range Interpretation Comme nts FREE T4 (test code = 1.08 See_Comment [Autom ated message] The system [id number]) which generated this result transmitted ref erence range: 0.78 - 2.20 ng/dL:. The reference range was not u sed to interpret this result as normal/abnormal. Lab Interpretation (test code = Normal 42578-7) [facility] acute hospital [id number] 00:30:44 Test Item Value Reference Range Interpretation Comments FREE T4 (test code = 1.08 See_Comment [Autom ated message] 8532111527) The system whic h generated this result transmitted ref erence range: 0.78 - 2 .20 ng/dL:. The ref erence range was not u sed to interpret this result as normal/abnor mal. Lab Interpretation (test Normal code = 19420-2) General acute hospital [id number] 00:30:24 Test Item Value Reference Range Interpretation Comments FREE T3 (test code = 0251983141) 3.32 pg/mL 2.77-5.27 Lab Interpretation (test code = Normal 41910-6) General acute hospital 00:30:24 Test Item Value Reference Range Interpretation Comments FREE T3 (test code = 1008803344) 3.32 pg/mL 2.77-5.27 Lab Interpretation (test code = Normal 95941-5) [id number]TOTAL CHOLESTEROL, TRIGLYCERIDES, HDL)2023-06-15 00:14:23 Test Item Value Reference Range Interpretation Comments CHOL (test code = 4581957082) 196 mg/dL 120-200 HDL (test code = 9267636877) 61 mg/dL >=50 HDLC RATIO (test code = 6276255276) 3.2 <=4.5 TRIG (test code = 6113014426) 72 mg/dL 30-170 LDL CHOL (test code = 23360-0) 121 mg/dL <=160 VLDL (test code = 8640709876) 14 mg/dL 5-60 Lab Interpretation (test code = Normal 25359-0) [id number]TOTAL CHOLESTEROL, TRIGLYCERIDES, HDL)2023-06-15 00:14:23 Test Item Value Reference Range Interpretation Comments CHOL (test code = 0401214261) 196 mg/dL 120-200 HDL (test code = 3361881459) 61 mg/dL >=50 HDLC RATIO (test code = 8235936114) 3.2 <=4.5 TRIG (test code = 2274585448) 72 mg/dL 30-170 LDL CHOL (test code = 66148-6) 121 mg/dL <=160 VLDL (test code = 9424019539) 14 mg/dL 5-60 Lab Interpretation (test code = Normal 73142-1) [facility][id number][facility]2023-06-15 00:14:03 Test Item Value Reference Range Interpretation Comments NA (test code = 141 mmol/L 135-145 7811248759) K (test code = 4.5 mmol/L 3.5-5.0 5914488755) CL (test code = 99 mmol/L 98-108 3086277277) CO2 TOTAL (test code = 33 mmol/L 23-31 H 9142612437) AGAP (test code = 9 2-16 4160583157) BUN (test code = 16 mg/dL 7-23 9925169076) GLUCOSE (test code = 80 mg/dL 70-110 0315834564) CREATININE (test code = 0.66 mg/dL 0.50-1.04 5370925377) TOTAL BILI (test code = 0.3 mg/dL 0.1-1.7 2702171681) CALCIUM (test code = 9.8 mg/dL 8.6-10.6 8454859207) T PROTEIN (test code = 7.7 g/dL 6.3-8.2 7726941525) ALBUMIN (test code = 4.3 g/dL 3.5-5.0 0830245073) ALK PHOS (test code = 71 U/L 34-122 9627096544) ALTv (test code = 16 U/L 5-35 1742-6) AST(SGOT) (test code = 24 U/L 13-40 9217410972) eGFR (test code = 86.2 mL/min/1.73m2 7162253103) JERAMIE (test code = JERAMIE) Association of Glomerular Filtration Rate (GFR) and Staging of Kidney Disease* + --+ --+ ------+| GFR (mL/min/1.73 m2) ?| With Kidney Damage ?| ?Without Kidney Damage+ --------+ --------+ +| ?>90 ?| ?Stage one ?| ? Normal ?+ ---+ ---+ -------+| ?60-89 ?| ?Stage two ?| ? Decreased GFR ? + --+ --+ ------+| ?30-59 ?| ?Stage three ?| ? Stage three ? + --+ --+ ------+| ?15-29 ?| ?Stage four ? | ? Stage four ?+ ---+ ---+ -------+| ?<15 (or dialysis) ? ?| ?Stage five ? | ? Stage five ?+ ---+ ---+ -------+ *Each stage assumes the associated GFR level has been in effect for at least three months. ?Stages 1 to 5, with or without kidney disease, indicate chronic kidney disease. Notes: Determination of stages one and two (with eGFR >59mL/min/1.73 m2) requires estimation of kidney damage for at least three months as defined by structural or functional abnormalities of the kidney, manifested by either:Pathological abnormalities or Markers of kidney damage (including abnormalities in the composition of the blood or urine or abnormalities in imaging tests). Lab Interpretation Abnormal (test code = 36583-4) [facility] METABOLIC PANEL ([id number])2023-06-15 00:14:03 Test Item Value Reference Range Interpretation Comments NA (test code = 141 mmol/L 135-145 3861850749) K (test code = 4.5 mmol/L 3.5-5.0 1237429281) CL (test code = 99 mmol/L 98-108 5895627187) CO2 TOTAL (test code = 33 mmol/L 23-31 H 4676569015) AGAP (test code = 9 2-16 7091962041) BUN (test code = 16 mg/dL 7-23 5745680677) GLUCOSE (test code = 80 mg/dL 70-110 4151036524) CREATININE (test code = 0.66 mg/dL 0.50-1.04 4476995562) TOTAL BILI (test code = 0.3 mg/dL 0.1-1.7 8217643599) CALCIUM (test code = 9.8 mg/dL 8.6-10.6 7870145153) T PROTEIN (test code = 7.7 g/dL 6.3-8.2 8316272319) ALBUMIN (test code = 4.3 g/dL 3.5-5.0 0854413030) ALK PHOS (test code = 71 U/L 34-122 2188139733) ALTv (test code = 16 U/L 5-35 1742-6) AST(SGOT) (test code = 24 U/L 13-40 3591136178) eGFR (test code = 86.2 mL/min/1.73m2 0505624610) JERAMIE (test code = JERAMIE) Association of Glomerular Filtration Rate (GFR) and Staging of Kidney Disease* + --+ --+ ------+| GFR (mL/min/1.73 m2) ?| With Kidney Damage ?| ?Without Kidney Damage+ --------+ --------+ +| ?>90 ?| ?Stage one ?| ? Normal ?+ ---+ ---+ -------+| ?60-89 ?| ?Stage two ?| ? Decreased GFR ? + --+ --+ ------+| ?30-59 ?| ?Stage three ?| ? Stage three ? + --+ --+ ------+| ?15-29 ?| ?Stage four ? | ? Stage four ?+ ---+ ---+ -------+| ?<15 (or dialysis) ? ?| ?Stage five ? | ? Stage five ?+ ---+ ---+ -------+ *Each stage assumes the associated GFR level has been in effect for at least three months. ?Stages 1 to 5, with or without kidney disease, indicate chronic kidney disease. Notes: Determination of stages one and two (with eGFR >59mL/min/1.73 m2) requires estimation of kidney damage for at least three months as defined by structural or functional abnormalities of the kidney, manifested by either:Pathological abnormalities or Markers of kidney damage (including abnormalities in the composition of the blood or urine or abnormalities in imaging tests). Lab Interpretation Abnormal (test code = 94723-8) [facility]2023-06-14 22:57:16 Test Item Value Reference Range Interpretation Comments HGB A1C (test code = 5.8 % 4.0-5.7 H 4548-4) JERAMIE (test code = JERAMIE) Reference RangesNormal: <5.7%Prediabetes: 5.7 - 6.4%Diabetes: > 6.5% Lab Interpretation (test Abnormal code = 57758-6) [facility]2023-06-14 22:57:16 Test Item Value Reference Range Interpretation Comments HGB A1C (test code = 5.8 % 4.0-5.7 H 4548-4) JERAMIE (test code = JERAMIE) Reference RangesNormal: <5.7%Prediabetes: 5.7 - 6.4%Diabetes: > 6.5% Lab Interpretation (test Abnormal code = 43048-2) [facility]14 22:57:16 Test Item Value Reference Range Interpretation Comments HGB A1C (test code = 5.8 % 4.0-5.7 H 4548-4) JERAMIE (test code = JERAMIE) Reference RangesNormal: <5.7%Prediabetes: 5.7 - 6.4%Diabetes: > 6.5% Lab Interpretation (test Abnormal code = 68730-5) [facility]2023-06-14 22:57:16 Test Item Value Reference Range Interpretation Comments HGB A1C (test code = 5.8 % 4.0-5.7 H 4548-4) JERAMIE (test code = JERAMIE) Reference RangesNormal: <5.7%Prediabetes: 5.7 - 6.4%Diabetes: > 6.5% Lab Interpretation (test Abnormal code = 70947-5) [facility] WITH [id number] 21:24:57 Test Item Value Reference Range Interpretation Comments WBC (test code = 6.41 See_Comment [Automated 2976-2) message] The sy stem which generated this result transmitted reference range : 4.30 - 11.10 10*3/?L. The reference range was not used to interpret this result as normal/abnormal . RBC (test code = 5.23 See_Comment [Automated 789-8) message] The sy stem which generated this result transmitted reference range : 3.93 - 5.25 10*6/?L. The reference range was not used to interpret this result as normal/abnormal . HGB (test code = 15.3 g/dL 11.6-15.0 H 718-7) HCT (test code = 49.5 % 35.7-45.2 H 4544-3) MCV (test code = 94.6 fL 80.6-95.5 787-2) MCH (test code = 29.3 pg 25.9-32.8 785-6) MCHC (test code = 30.9 g/dL 31.6-35.1 L 786-4) RDW-SD (test code = 46.9 fL 39.0-49.9 63473-8) RDW-CV (test code = 13.6 % 12.0-15.5 788-0) PLT (test code = 247 See_Comment [Automated 777-3) message] The sy stem which generated this result transmitted reference range : 166 - 358 10*3/ ?L. The reference r wong was not used to interpret this result as normal/abnormal . MPV (test code = 9.5 fL 9.5-12.9 87717-0) NRBC/100 WBC (test 0.0 See_Comment [Automat ed code = 9459333395) message] The system which generated this result transmitted reference range : 0.0 - 10.0 /100 WBCs. The refer ence range was not u sed to interpret th is result as normal/abnormal . NRBC x10^3 (test code See_Comment [Auto mated = 1816296009) message] The s ystem which generated this result transmitted reference range : 10*3/?L. The reference range was not used to interpret this result as normal/abnormal . GRAN MAT (NEUT) % 61.3 % (test code = 770-8) IMM GRAN % (test code 0.20 % = 8654613385) LYMPH % (test code = 28.9 % 736-9) MONO % (test code = 6.1 % 5905-5) EOS % (test code = 2.7 % 713-8) BASO % (test code = 0.8 % 706-2) GRAN MAT x10^3(ANC) 3.94 10*3/uL 1.88-7.09 (test code = 5157515069) IMM GRAN x10^3 (test 0.00-0.06 code = 7898039131) LYMPH x10^3 (test code 1.85 10*3/uL 1.32-3.29 = 731-0) MONO x10^3 (test code 0.39 10*3/uL 0.33-0.92 = 742-7) EOS x10^3 (test code = 0.17 10*3/uL 0.03-0.39 711-2) BASO x10^3 (test code 0.05 10*3/uL 0.01-0.07 = 704-7) Lab Interpretation Abnormal (test code = 15988-6) [facility] WITH [id number] 21:24:57 Test Item Value Reference Range Interpretation Comments WBC (test code = 6.41 See_Comment [Automated 4890-2) message] The sy stem which generated this result transmitted reference range : 4.30 - 11.10 10*3/?L. The reference range was not used to interpret this result as normal/abnormal . RBC (test code = 5.23 See_Comment [Automated 609-8) message] The sy stem which generated this result transmitted reference range : 3.93 - 5.25 10*6/?L. The reference range was not used to interpret this result as normal/abnormal . HGB (test code = 15.3 g/dL 11.6-15.0 H 718-7) HCT (test code = 49.5 % 35.7-45.2 H 4544-3) MCV (test code = 94.6 fL 80.6-95.5 787-2) MCH (test code = 29.3 pg 25.9-32.8 785-6) MCHC (test code = 30.9 g/dL 31.6-35.1 L 786-4) RDW-SD (test code = 46.9 fL 39.0-49.9 83943-5) RDW-CV (test code = 13.6 % 12.0-15.5 788-0) PLT (test code = 247 See_Comment [Automated 777-3) message] The sy stem which generated this result transmitted reference range : 166 - 358 10*3/ ?L. The reference r wong was not used to interpret this result as normal/abnormal . MPV (test code = 9.5 fL 9.5-12.9 29399-0) NRBC/100 WBC (test 0.0 See_Comment [Automat ed code = 2055141922) message] The system which generated this result transmitted reference range : 0.0 - 10.0 /100 WBCs. The refer ence range was not u sed to interpret th is result as normal/abnormal . NRBC x10^3 (test code See_Comment [Auto mated = 4689706420) message] The s ystem which generated this result transmitted reference range : 10*3/?L. The reference range was not used to interpret this result as normal/abnormal . GRAN MAT (NEUT) % 61.3 % (test code = 770-8) IMM GRAN % (test code 0.20 % = 9514373021) LYMPH % (test code = 28.9 % 736-9) MONO % (test code = 6.1 % 5905-5) EOS % (test code = 2.7 % 713-8) BASO % (test code = 0.8 % 706-2) GRAN MAT x10^3(ANC) 3.94 10*3/uL 1.88-7.09 (test code = 8025787937) IMM GRAN x10^3 (test 0.00-0.06 code = 7953699618) LYMPH x10^3 (test code 1.85 10*3/uL 1.32-3.29 = 731-0) MONO x10^3 (test code 0.39 10*3/uL 0.33-0.92 = 742-7) EOS x10^3 (test code = 0.17 10*3/uL 0.03-0.39 711-2) BASO x10^3 (test code 0.05 10*3/uL 0.01-0.07 = 704-7) Lab Interpretation Abnormal (test code = 48151-8) [facility] WITH [id number] 21:24:57 Test Item Value Reference Range Interpretation Comments WBC (test code = 6.41 See_Comment [Automated 8208-2) message] The sy stem which generated this result transmitted reference range : 4.30 - 11.10 10*3/?L. The reference range was not used to interpret this result as normal/abnormal . RBC (test code = 5.23 See_Comment [Automated 636-8) message] The sy stem which generated this result transmitted reference range : 3.93 - 5.25 10*6/?L. The reference range was not used to interpret this result as normal/abnormal . HGB (test code = 15.3 g/dL 11.6-15.0 H 718-7) HCT (test code = 49.5 % 35.7-45.2 H 4544-3) MCV (test code = 94.6 fL 80.6-95.5 787-2) MCH (test code = 29.3 pg 25.9-32.8 785-6) MCHC (test code = 30.9 g/dL 31.6-35.1 L 786-4) RDW-SD (test code = 46.9 fL 39.0-49.9 73672-5) RDW-CV (test code = 13.6 % 12.0-15.5 788-0) PLT (test code = 247 See_Comment [Automated 187-3) message] The sy stem which generated this result transmitted reference range : 166 - 358 10*3/ ?L. The reference r wong was not used to interpret this result as normal/abnormal . MPV (test code = 9.5 fL 9.5-12.9 64185-8) NRBC/100 WBC (test 0.0 See_Comment [Automat ed code = 4913982103) message] The system which generated this result transmitted reference range : 0.0 - 10.0 /100 WBCs. The refer ence range was not u sed to interpret th is result as normal/abnormal . NRBC x10^3 (test code See_Comment [Auto mated = 3925977373) message] The s ystem which generated this result transmitted reference range : 10*3/?L. The reference range was not used to interpret this result as normal/abnormal . GRAN MAT (NEUT) % 61.3 % (test code = 770-8) IMM GRAN % (test code 0.20 % = 2816238065) LYMPH % (test code = 28.9 % 736-9) MONO % (test code = 6.1 % 5905-5) EOS % (test code = 2.7 % 713-8) BASO % (test code = 0.8 % 706-2) GRAN MAT x10^3(ANC) 3.94 10*3/uL 1.88-7.09 (test code = 1572284066) IMM GRAN x10^3 (test 0.00-0.06 code = 6273724642) LYMPH x10^3 (test code 1.85 10*3/uL 1.32-3.29 = 731-0) MONO x10^3 (test code 0.39 10*3/uL 0.33-0.92 = 742-7) EOS x10^3 (test code = 0.17 10*3/uL 0.03-0.39 711-2) BASO x10^3 (test code 0.05 10*3/uL 0.01-0.07 = 704-7) Lab Interpretation Abnormal (test code = 10103-3) [facility] WITH [id number] 21:24:57 Test Item Value Reference Range Interpretation Comments WBC (test code = 6.41 See_Comment [Automated 6690-2) message] The sy stem which generated this result transmitted reference range : 4.30 - 11.10 10*3/?L. The reference range was not used to interpret this result as normal/abnormal . RBC (test code = 5.23 See_Comment [Automated 789-8) message] The sy stem which generated this result transmitted reference range : 3.93 - 5.25 10*6/?L. The reference range was not used to interpret this result as normal/abnormal . HGB (test code = 15.3 g/dL 11.6-15.0 H 718-7) HCT (test code = 49.5 % 35.7-45.2 H 4544-3) MCV (test code = 94.6 fL 80.6-95.5 787-2) MCH (test code = 29.3 pg 25.9-32.8 785-6) MCHC (test code = 30.9 g/dL 31.6-35.1 L 786-4) RDW-SD (test code = 46.9 fL 39.0-49.9 85409-6) RDW-CV (test code = 13.6 % 12.0-15.5 788-0) PLT (test code = 247 See_Comment [Automated 777-3) message] The sy stem which generated this result transmitted reference range : 166 - 358 10*3/ ?L. The reference r wong was not used to interpret this result as normal/abnormal . MPV (test code = 9.5 fL 9.5-12.9 17272-0) NRBC/100 WBC (test 0.0 See_Comment [Automat ed code = 4251249915) message] The system which generated this result transmitted reference range : 0.0 - 10.0 /100 WBCs. The refer ence range was not u sed to interpret th is result as normal/abnormal . NRBC x10^3 (test code See_Comment [Auto mated = 1571504273) message] The s ystem which generated this result transmitted reference range : 10*3/?L. The reference range was not used to interpret this result as normal/abnormal . GRAN MAT (NEUT) % 61.3 % (test code = 770-8) IMM GRAN % (test code 0.20 % = 6089507638) LYMPH % (test code = 28.9 % 736-9) MONO % (test code = 6.1 % 5905-5) EOS % (test code = 2.7 % 713-8) BASO % (test code = 0.8 % 706-2) GRAN MAT x10^3(ANC) 3.94 10*3/uL 1.88-7.09 (test code = 3162154501) IMM GRAN x10^3 (test 0.00-0.06 code = 7619276111) LYMPH x10^3 (test code 1.85 10*3/uL 1.32-3.29 = 731-0) MONO x10^3 (test code 0.39 10*3/uL 0.33-0.92 = 742-7) EOS x10^3 (test code = 0.17 10*3/uL 0.03-0.39 711-2) BASO x10^3 (test code 0.05 10*3/uL 0.01-0.07 = 704-7) Lab Interpretation Abnormal (test code = 83712-5) [facility] Notes Date/Time Note Provider Source 2023-06-17 14:36:05-00:00 Formatting of this note migh t be different from the original. [facility] codebender Was ordered. Will reorder nebulizer again 2023-06-14 15:30:00-00:00 Formatting of this note is d ifferent from the original. [facility] - [employer] Images from the original note were not included. Venipuncture collection perf ormed by clean technique on the left anticubitus. Total of 1 attempts were made. Slight pressure and a bandage/dressing were applied to the site(s). The patient experienced n o complications. The followi ng specimens were processed according to instructions and sent to [facility] laboratories per lab order on 06/14/2023 : Labs for Dr Albright today Pt unable to void, will be back on 06/24/23 to joshua Rangel 06/14/2023 3:46 PM LT BLUE SST 2 RED LAV 2 PPT DK GREEN (LiHep) DK GREEN (SodH) DEAN DK BLUE (K2) DK BLUE (S) ACD Blood Culture NIPT/NTD Electronically signed by Barb Rangel at 0 06/14/2023 3:47 PM CDT 2023-06-14 15:24:46-00:00 Formatting of this note migh t be different from the original. Myra Pedroza [facility] - Health Patient daughter called willard marc she does not have a nebulizer machine to go with the meds prescribed today. She is needing a prescription for one. Electronically signed by Myra Pedroza at 3:26 PM CDT"
[2023-06-19] MEDS ORDERED: HYDROCORTISONE SUC 100 MG INJ ONE (23:14)
[2023-06-19] MEDS ORDERED: NA CHLORIDE 0.9% 1,000 ML ONE (23:14)
[2023-06-19] MEDS ORDERED: PANTOPRAZOLE 40 MG INJ ONE (23:14)
[2023-06-19] MEDS ORDERED: NA CHLORIDE 0.9% 100 ML ONE (23:15)
[2023-06-19] MEDS ORDERED: CEFEPIME 1 GM/VIAL ONE (23:15)
[2023-06-19 23:22] LABS: Hematocrit 45.4 % (36.0-45.0); MCV 90.2 fL (80-100); MPV 8.1 fL (7.6-11.3); Platelets 214 thou/uL (152-406); RBC Red Blood Cell Count 5.03 M/uL (3.86-4.86)
[2023-06-19 23:23] LABS: Absolute Lymphocytes (CBC) 2.7 K/uL (0.7-4.9)
[2023-06-20 00:37] LABS: Renal Epithelial <5 /HPF (None Seen); Specific Gravity 1.011 (1.005-1.030); Urine Bacteria None Seen /HPF (<20); Urine Bilirubin NEGATIVE (Negative); Urine Blood Negative (Negative); Urine Clarity Extremely Turbid (Clear); Urine Color Light-Yellow (Yellow); Urine Glucose TRACE (Negative); Urine Protein NEGATIVE (Negative); Urine RBC <5 /HPF (None Seen); Urine Urobilinogen Normal (Normal)
[2023-06-20 00:38] LABS: ALT/SGPT 21 U/L (13-56); AST/SGOT 16 U/L (15-37); Albumin 3.7 g/dL (3.4-5.0); Alkaline Phosphatase 87 U/L (45-117); BUN Blood Urea Nitrogen 20 mg/dL (7-18); Bicarbonate 37 mEq/L (21-32); Bilirubin Total 0.3 mg/dL (0.2-1.0); Glomerular Filtration Rate 56 ml/min (=/>90); Glucose Level 207 mg/dL (74-106); Lipase 36 U/L (13-75); Magnesium 2.3 mg/dL (1.6-2.4); NT PRO-BNP 46 pg/mL (<450); Potassium 3.4 mEq/L (3.5-5.1); Protein, Total 8.1 g/dL (6.4-8.2); Sodium Level 133 mEq/L (136-145); Troponin High Sensitivity 6.2 pg/mL (<58.9)
[2023-06-20 00:41] LABS: SARS-CoV-2 Antigen Rapid Res Negative (Negative)
[2023-06-20 00:43] LABS: Bilirubin Direct < 0.1 mg/dL (0-0.2); Bilirubin Indirect, Calculated ND mg/dL (0.2-0.8)
[2023-06-20] MEDS ORDERED: NA CHLORIDE 0.9% 100 ML ONE (01:01)
[2023-06-20] MEDS ORDERED: CEFEPIME 1 GM/VIAL ONE (01:08)
--- NOTE | 2023-06-20 01:24 | EDPHYS ---
Physician Documentation [facility] Name: Maral Cain Age: 82 yrs Sex: Female : 1940 Arrival Date: 06/19/2023 Time: 22:30 Bed 2 Private MD: BEVERLY Physician Darwin Lance HPI: 06/20 01:11 This 82 yrs old Female presents to ER via Wheelchair with complaints of negar Altered Mental Status. 01:11 The patient presents with confusion, decreased responsiveness. negar 01:11 The patient has shortness of breath at rest, with light activity. Onset: The negar symptoms/episode began/occurred 1 day(s) ago. Duration: The symptoms are continuous, and are steadily getting worse. The patient's shortness of breath is aggravated by coughing, light activity. Possible causes: CVA or TIA, head injury, low blood sugar, seizure, sepsis. Associated signs and symptoms: Pertinent positives: non-productive cough, dizziness. Severity of symptoms: At their worst the symptoms were moderate in the emergency department the symptoms have improved. The patient or guardian reports cough, described as moderate, difficulty breathing, flu symptoms, arthralgias, myalgias. Associated signs and symptoms: Pertinent positives: confusion, dizziness, lightheadedness, shortness of breath. Severity of symptoms: At their worst the symptoms were moderate, in the emergency department the symptoms have improved, moderately. Current symptoms: In the emergency department the patient's symptoms have improved, moderately. Modifying factors: The symptoms are alleviated by nebulizer treatment, the symptoms are aggravated by nothing. Patient's baseline: Neuro: alert and fully oriented. The patient has experienced similar episodes in the past, a few times. - Family history:: not pertinent. ROS: 01:17 Constitutional: Negative for fever, chills, and weight loss, Eyes: Negative for injury, negar pain, redness, and discharge, ENT: Negative for injury, pain, and discharge, Neck: Negative for injury, pain, and swelling, Cardiovascular: Negative for chest pain, palpitations, and edema, Abdomen/GI: Negative for abdominal pain, nausea, vomiting, diarrhea, and constipation, Back: Negative for injury and pain, : Negative for injury, bleeding, discharge, and swelling, MS/Extremity: Negative for injury and deformity, Skin: Negative for injury, rash, and discoloration, Psych: Negative for depression, anxiety, suicide ideation, homicidal ideation, and hallucinations, Allergy/Immunology: Negative for hives, rash, and allergies, Endocrine: Negative for neck swelling, polydipsia, polyuria, polyphagia, and marked weight changes, Hematologic/Lymphatic: Negative for swollen nodes, abnormal bleeding, and unusual bruising. 01:17 Respiratory: Positive for cough, shortness of breath, at rest. :17 Neuro: Positive for altered mental status, weakness. Exam: :17 Constitutional: This is a well developed, well nourished patient who is awake, alert, negar and in no acute distress. Head/Face: Normocephalic, atraumatic. Eyes: Pupils equal round and reactive to light, extra-ocular motions intact. Lids and lashes normal. Conjunctiva and sclera are non-icteric and not injected. Cornea within normal limits. Periorbital areas with no swelling, redness, or edema. ENT: Nares patent. No nasal discharge, no septal abnormalities noted. Tympanic membranes are normal and external auditory canals are clear. Oropharynx with no redness, swelling, or masses, exudates, or evidence of obstruction, uvula midline. Mucous membranes moist. Neck: Trachea midline, no thyromegaly or masses palpated, and no cervical lymphadenopathy. Supple, full range of motion without nuchal rigidity, or vertebral point tenderness. No Meningismus. Chest/axilla: Normal chest wall appearance and motion. Nontender with no deformity. No lesions are appreciated. Cardiovascular: Regular rate and rhythm with a normal S1 and S2. No gallops, murmurs, or rubs. Normal PMI, no JVD. No pulse deficits. Abdomen/GI: Soft, non-tender, with normal bowel sounds. No distension or tympany. No guarding or rebound. No evidence of tenderness throughout. Back: No spinal tenderness. No costovertebral tenderness. Full range of motion. Female : Normal external genitalia. Skin: Warm, dry with normal turgor. Normal color with no rashes, no lesions, and no evidence of cellulitis. MS/ Extremity: Pulses equal, no cyanosis. Neurovascular intact. Full, normal range of motion. Psych: Awake, alert, with orientation to person, place and time. Behavior, mood, and affect are within normal limits. :17 ECG was reviewed by the Attending Physician. 01:17 Respiratory: mild respiratory distress is noted, Respirations: labored breathing, that is mild, Breath sounds: bronchial sounds, that are mild, that are moderate, decreased breath sounds, that are mild, are scattered, rhonchi, that are mild, stridor, that is mild, + upper airway congestion. Respiratory rate: 18 Vital Signs: 06/19 22:34 BP 156 / 72; Pulse 70; Resp 18; Temp 97.8(O); Pulse Ox 88% on R/A; Weight 35.5 kg; ha1 Height 5 ft. 6 in. ; 23:00 BP 162 / 77; Pulse 77; Resp 19 S; Pulse Ox 100% on 2 lpm NC; [facility] 06/20 00:00 BP 172 / 86; Pulse 76; Resp 22 S; Pulse Ox 100% on 2 lpm NC; 1 01:00 BP 114 / 78; Pulse 73; Resp 20 S; Pulse Ox 100% on 2 lpm NC; 1 02:00 BP 138 / 63; Pulse 89; Resp 22 S; Pulse Ox 100% on 2 lpm NC; [facility] 06/19 22:34 Body Mass Index 12.63 (35.50 kg, 167.64 cm) [facility] MDM: 06/19 22:40 Patient medically screened. [facility] 06/20 01:19 Differential diagnosis: asthma, Bronchitis CHF exacerbation, Chronic Obstructive negar Pulmonary Disease pneumonia, Pneumothorax pulmonary edema, reactive airway disease, Sepsis Unstable Angina. Antibiotic administration: cefepime. Differential Diagnosis: cardiac arrhythmia, cerebrovascular accident, emotional response, idiopathic syncope, CVA, electrolyte abnormality, hypoglycemia, intracranial bleed, meningitis, pneumonia, seizure, sepsis, volume depletion. Differential Diagnosis: Obstructed Airway Bronchitis Influenza Upper Respiratory Infection Sinusitis Pharyngitis Asthma Exacerbation Viral Syndrome Pneumonia. Immunization status: Pneumococcal vaccine: within last 5 years. Influenza vaccine: within last 5 years. Data reviewed: vital signs, nurses notes, lab test result(s), EKG, radiologic studies, plain films. Consideration of Admission/Observation Patient was admitted/placed on observation. Escalation of care including admission/observation considered. I considered the following discharge prescriptions or medication management in the emergency department Medications were administered in the Emergency Department. See MAR. Independent interpretation of the following test(s) in the Emergency Department EKG: See my EKG interpretation above. Test considered but Not performed: MRI: no mri brain. Historians other than the Patient: Family Member: daughter, informed. Care significantly affected by the following chronic conditions: Hypertension, Chronic Obstructive Pulmonary Disease. 06/19 22:42 Order name: Basic Metabolic Panel; Complete Time: 01:02 [facility] 06/19 22:42 Order name: CBC with Diff; Complete Time: 00:04 [facility] 06/19 22:42 Order name: LFT's; Complete Time: 01:02 [facility] 06/19 22:42 Order name: Magnesium; Complete Time: 01:02 [facility] 06/19 22:42 Order name: NT PRO-BNP; Complete Time: 01:02 [facility] 06/19 22:42 Order name: PT-INR [facility] 06/19 22:42 Order name: Troponin HS; Complete Time: 01: [facility] 06/19 22:42 Order name: Lipase; Complete Time: 01:02 [facility] 06/19 22:42 Order name: Urinalysis w/ reflexes; Complete Time: 01:02 [facility] 06/19 22:42 Order name: SARS RAPID; Complete Time: 01:02 [facility] 06/19 22:42 Order name: Flu [facility] 06/19 22:51 Order name: Blood Culture Adult (2) [facility] 06/19 22:51 Order name: Lactate w/ 2H reflex if indic.; Complete Time: 00:04 [facility] 06/20 01:08 Order name: ABG [facility] 06/19 22:42 Order name: XRAY Chest (1 view) [facility] 06/19 22:42 Order name: CT Traumagram (Head C Spine CAP wo con) [facility] 06/19 22:42 Order name: EKG; Complete Time: 22:43 [facility] 06/19 22:42 Order name: Cardiac monitoring; Complete Time: 23:00 [facility] 06/19 22:42 Order name: EKG - Nurse/Tech; Complete Time: 23:00 [facility] 06/19 22:42 Order name: IV Saline Lock; Complete Time: 01: [facility] 06/19 22:42 Order name: Labs collected and sent; Complete Time: 01:02 [facility] 06/19 22:42 Order name: O2 Per Protocol; Complete Time: 23:00 [facility] 06/19 22:42 Order name: O2 Sat Monitoring; Complete Time: 23:00 [facility] 06/19 22:48 Order name: Angel; Complete Time: 00:20 [facility] EC:17 Rate is 72 beats/min. Rhythm is regular. QRS [place] is Normal. NV interval is normal. QRS negar interval is normal. QT interval is normal. No Q waves. T waves are Normal. No ST changes noted. Clinical impression: NSR w/ Non-specific ST/T Changes and No evidence of ischemia. Interpreted by me. Reviewed by me. Administered Medications: 06/19 00:40 Drug: Pantoprazole IVP 40 mg Route: IVP; Site: right forearm; [facility] 06/20 01:40 Follow up: Response: No adverse reaction; Marked relief of symptoms pf1 06/19 23:00 Drug: NS 0.9% IV 1000 ml Route: IV; Rate: 1 bolus; Site: right forearm; [facility] 06/20 00:00 Follow up: Response: No adverse reaction; Marked relief of symptoms; IV Status: pf1 Completed infusion; IV Intake: 1000ml 00:30 Drug: Solu-CORTEF IVP 100 mg Route: IVP; Site: right forearm; [facility] 01:30 Follow up: Response: No adverse reaction; Marked relief of symptoms pf1 01:02 Drug: Cefepime IVPB 1 grams Route: IVPB; Rate: 200 ml/hr; Infused Over: 30 mins; Site: [facility] right forearm; 01:32 Follow up: Response: No adverse reaction; Marked relief of symptoms; IV Status: pf1 Completed infusion; IV Intake: 100ml 01:50 Drug: Levalbuterol Inhalation 1.25 mg Route: Inhalation; ha1 02:50 Follow up: Response: No adverse reaction; Marked relief of symptoms pf1 01:50 Drug: Ipratropium Inhalation Aerosol 0.5 mg Route: Inhalation; ha1 02:50 Follow up: Response: No adverse reaction; Marked relief of symptoms pf1 01:50 Drug: Levalbuterol Inhalation 1.25 mg Route: Inhalation; ha1 02:50 Follow up: Response: No adverse reaction; Marked relief of symptoms pf1 Disposition Summary: 06/20/23 01:23 Hospitalization Ordered Hospitalization Status: Inpatient Admission negar Provider: Garcia Castro cha Location: Telemetry/MedSurg (Inpatient) negar Condition: Fair negar Problem: new negar Symptoms: have improved negar Bed/Room Type: Standard negar Room Assignment: [id number](06/20/23 02:12) cg Diagnosis - Hypoxemia negar - Syncope Near negar - COPD/ Chronic obstructive pulmonary disease with (acute) exacerbation negar - Weakness negar - Hypokalemia negar - Anorexia negar Forms: - Medication Reconciliation Form negar - SBAR form negar - Leadership Thank You Letter negar Signatures: Dispatcher [employer] Darwin Thomas MD MD cha Garcia, Cindy RN RN cg Addis Mcknight RN RN ha1 Dayanara Maciel RN pf1 Corrections: (The following items were deleted from the chart) 02:12 01:23 negar
--- NOTE | 2023-06-20 01:24 | ER ---
Nurse's Notes [facility] Name: Maral Cain Age: 82 yrs Sex: Female : 1940 Arrival Date: 06/19/2023 Time: 22:30 Bed 2 Private MD: Diagnosis: Hypoxemia;Syncope Near;COPD/ Chronic obstructive pulmonary disease with (acute) exacerbation;Weakness;Hypokalemia;Anorexia Presentation: 06/19 22:34 Chief complaint: Patient states: Daughter C/O patient slumped over at the table ha1 unresponsive, but was breathing, onset CANNING MACHINE OPERATOR. Daughter stated the patient vomited x 2 episodes today and has not been eating very well in the past 6 months with weight loss. 22:34 Coronavirus screen: Vaccine status: Patient reports being unvaccinated. Client denies ha1 travel out of the [place] in the last 14 days. At this time, the client does not indicate any symptoms associated with coronavirus-19. Ebola Screen: Patient negative for fever greater than or equal to 101.5 degrees Fahrenheit, and additional compatible Ebola Virus Disease symptoms. Initial Sepsis Screen: Does the patient meet any 2 criteria? No. Patient's initial sepsis screen is negative. Does the patient have a suspected source of infection? No. Patient's initial sepsis screen is negative. Risk Assessment: Do you want to hurt yourself or someone else? Unable to obtain. 22:34 Method Of Arrival: Wheelchair ha1 22:34 Acuity: RADHA 2 ha1 Triage Assessment: 22:34 General: Appears uncomfortable, Behavior is calm. Pain: Unable to use pain scale. FLACC ha1 scale score is 0 out of 10. Neuro: Level of Consciousness is awake, alert, Oriented to person. Cardiovascular: Heart tones S1 S2 present Capillary refill < 3 seconds. Respiratory: Airway is patent Respiratory effort is even, unlabored, Respiratory pattern is regular, tachypnea. GI: Abdomen is flat, non-distended, Parent/caregiver reports the patient having nausea. 22:34 GI: Parent/caregiver reports the patient having vomiting. Musculoskeletal: Circulation, ha1 motion, and sensation intact. - Family history:: not pertinent. Screenin/04 01:35 [facility] ED Fall Risk Assessment (Adult) History of falling in the last 3 months, ha1 including since admission. Abuse screen: Denies threats or abuse. Denies injuries from another. Nutritional screening: No deficits noted. Tuberculosis screening: No symptoms or risk factors identified. Assessment: 06/19 22:34 Reassessment: see triage assessment. ha1 22:35 General: Appears uncomfortable, unkempt. pf1 22:35 Neuro: Level of Consciousness is obeys commands, Oriented to person. Cardiovascular: No pf1 deficits noted. Capillary refill < 3 seconds Patient's skin is warm and dry. Respiratory: Airway is patent Respiratory effort is even, labored, Respiratory pattern is regular, symmetrical, Breath sounds are diminished bilaterally. Breath sounds with rhonchi bilaterally. 22:35 GI: Parent/caregiver reports the patient having vomiting. : No deficits noted. No pf1 signs and/or symptoms were reported regarding the genitourinary system. EENT: No deficits noted. No signs and/or symptoms were reported regarding the EENT system. 23:00 Reassessment: Patient and/or family updated on plan of care and expected duration. Pain ha1 level reassessed. Patient is alert, oriented x 3, equal unlabored respirations, skin warm/dry/pink. 06/20 00:00 Reassessment: Patient and/or family updated on plan of care and expected duration. Pain ha1 level reassessed. Patient is alert, oriented x 3, equal unlabored respirations, skin warm/dry/pink. 01:00 Reassessment: Patient and/or family updated on plan of care and expected duration. Pain ha1 level reassessed. Patient is alert, oriented x 3, equal unlabored respirations, skin warm/dry/pink. 02:20 Reassessment: attempted to give report. [facility] 02:48 Reassessment: Report given to ARJUN Manzano. [facility] Vital Signs: 06/19 22:34 BP 156 / 72; Pulse 70; Resp 18; Temp 97.8(O); Pulse Ox 88% on R/A; Weight 35.5 kg; ha1 Height 5 ft. 6 in. ; 23:00 BP 162 / 77; Pulse 77; Resp 19 S; Pulse Ox 100% on 2 lpm NC; ha1 06/20 00:00 BP 172 / 86; Pulse 76; Resp 22 S; Pulse Ox 100% on 2 lpm NC; ha1 01:00 BP 114 / 78; Pulse 73; Resp 20 S; Pulse Ox 100% on 2 lpm NC; ha1 02:00 BP 138 / 63; Pulse 89; Resp 22 S; Pulse Ox 100% on 2 lpm NC; 1 06/19 22:34 Body Mass Index 12.63 (35.50 kg, 167.64 cm) [facility] ED Course: 06/19 22:33 Patient arrived in ED. pf1 22:35 No provider procedures requiring assistance completed. pf1 22:35 Patient has correct armband on for positive identification. Bed in low position. Call pf1 light in reach. Side rails up X2. 22:35 Arm band placed on. pf1 22:40 Darwin Lance MD is Attending Physician. [facility] 23:05 XRAY Chest (1 view) In Process Unspecified. EDMS 23:54 CT Traumagram (Head C Spine CAP wo con) In Process Unspecified. EDMS 06/20 00:20 Flu Sent. cg3 00:20 SARS RAPID Sent. cg3 00:21 Urinalysis w/ reflexes Sent. cg3 00:21 Ortiz cath inserted, using sterile technique, 16 Fr., by md, balloon inflated, to cg3 gravity drainage, urine specimen collected. Patient tolerated well. 00:34 SARS RAPID Sent. cg3 00:34 Flu Sent. cg3 00:43 Triage completed. 1 01:22 Garcia Castro MD is Hospitalizing Provider. [facility] 07:44 Patient admitted, IV remains in place. pf1 Administered Medications: 06/19 00:40 Drug: Pantoprazole IVP 40 mg Route: IVP; Site: right forearm; [facility] 06/20 01:40 Follow up: Response: No adverse reaction; Marked relief of symptoms pf1 06/19 23:00 Drug: NS 0.9% IV 1000 ml Route: IV; Rate: 1 bolus; Site: right forearm; [facility] 06/20 00:00 Follow up: Response: No adverse reaction; Marked relief of symptoms; IV Status: pf1 Completed infusion; IV Intake: 1000ml 00:30 Drug: Solu-CORTEF IVP 100 mg Route: IVP; Site: right forearm; [facility] 01:30 Follow up: Response: No adverse reaction; Marked relief of symptoms pf1 01:02 Drug: Cefepime IVPB 1 grams Route: IVPB; Rate: 200 ml/hr; Infused Over: 30 mins; Site: [facility] right forearm; 01:32 Follow up: Response: No adverse reaction; Marked relief of symptoms; IV Status: pf1 Completed infusion; IV Intake: 100ml 01:50 Drug: Levalbuterol Inhalation 1.25 mg Route: Inhalation; ha1 02:50 Follow up: Response: No adverse reaction; Marked relief of symptoms pf1 01:50 Drug: Ipratropium Inhalation Aerosol 0.5 mg Route: Inhalation; ha1 02:50 Follow up: Response: No adverse reaction; Marked relief of symptoms pf1 01:50 Drug: Levalbuterol Inhalation 1.25 mg Route: Inhalation; ha1 02:50 Follow up: Response: No adverse reaction; Marked relief of symptoms pf1 Medication: 03:30 VIS not applicable for this client. pf1 Intake: 00:00 IV: 1000ml; Total: 1000ml. pf1 01:32 IV: 100ml; Total: 1100ml. pf1 Outcome: 01:23 Decision to Hospitalize by Provider. negar 03:30 Admitted to Med/surg via stretcher, with chart, Report called to ARJUN Manzano pf1 03:30 Condition: stable pf1 03:30 Instructed on the need for admit, Demonstrated understanding of instructions. 03:37 Patient left the ED. [facility] Signatures: Dispatcher [employer] EDDarwin Foss MD MD cha Ayala, Heidy, RN Dayanara Morin RN RN pf1 Jackie Gamez 3 Corrections: (The following items were deleted from the chart) 01:34 01:00 BP 114 / 78; Pulse 73bpm; Resp 20bpm; Spontaneous; Pulse Ox 100% RA; ha1 ha1 01:34 00:00 BP 172 / 86; Pulse 76bpm; Resp 22bpm; Spontaneous; Pulse Ox 100% RA; [facility] ha1 07:43 09/03 22:35 Respiratory: Airway is patent Respiratory effort is even, unlabored, pf1 Respiratory pattern is regular, symmetrical, pf1
[2023-06-20] MEDS ORDERED: IPRATROPIUM BROM 0.5MG/2.5ML ONE (01:53)
[2023-06-20] MEDS ORDERED: LEVALBUTEROL 1.25 MG/3 ML NEB ONE (01:53)
[2023-06-20 01:57] LABS: Blood O2 Saturation 98.1 % (92-98.5)
[2023-06-20 01:58] LABS: Arterial Blood Carboxyhemoglob 0.7 % (0-1.5)
--- NOTE | 2023-06-20 02:24 | P.HP ---
Certification for Inpatient Patient admitted to: Inpatient With expected LOS: >2 Midnights Patient will require the following post-hospital care: None Practitioner: I am a practitioner with admitting privileges, knowledge of patient current condition, hospital course, and medical plan of care. Services: Services provided to patient in accordance with Admission requirements found in Title 42 Section 412.3 of the Code of Federal Regulations <Jorje Pack Alexandro Nikos - Last Filed: 06/20/23 02:18> Patient History Date of Service: 06/20/23 Reason for admission: Respiratory failure History of Present Illness: 82-year-old female with history of COPD, dementia presents to the emergency department with chief complaint of altered mental status. Her daughter who lives with her at home reports that after eating dinner around 10 PM she seemed to have lost consciousness, she was nodding off before that and seemed to slump forward and had an episode of vomiting. Daughter got a cool cloth and sample washer she seemed to arouse and began complaining of back pain. Daughter reports this is chronic in nature and consistent with previous complaints. She was brought into the emergency department still less responsive than her baseline, sats were around 88% on room air, noted to have expiratory wheezing. She was evaluated in the emergency department her labs were significant for white blood cell 10.5 hemoglobin 14.8 hematocrit 45.4 sodium 133 potassium 3.4 chloride 93 bicarb 37 BUN 20 creatinine 1.01 glucose [address] head/C- spine/chest abdomen pelvis was performed which was negative for any acute findings not suggestive of any pneumonia or acute pulmonary/cardiac findings. Initial high-sensitivity troponin was negative at 6.2. ED provider wishes to admit for COPD exacerbation, acute on chronic hypercapnic/hypoxic respiratory failure, possible syncope. Patient is alert and oriented x2 not aware of the year denies losing consciousness remembers vomiting but daughter thinks that she did pass out. - Past Medical/Surgical History Diabetic: No -: COPD -: Dementia Past Surgical History: Unable to obtain Psychosocial/ Personal History: Lives at home with her daughter - Family History Family History: Reviewed- Non-Contributory - Social History Smoking Status: Never smoker Alcohol use: No CD- Drugs: No Caffeine use: Yes Place of Residence: Home <SirenaJorje Knott - Last Filed: 06/20/23 02:18> Date of Service: 06/20/23 <Garcia Castro - Last Filed: 06/20/23 13:05> Allergies No Known Allergies Allergy (Unverified 03/24/22 07:17) Home Medications: Ascorbic Acid [Vitamin C*] 500 mg PO DAILY 30 Days #30 tablet 03/26/22 Benzonatate [Tessalon Perle*] 100 mg PO TID PRN 7 Days #21 cap 03/26/22 Cholecalciferol (Vitamin D3) [Vitamin D 1000 Iu Tab*] 1,000 unit PO DAILY 30 Days #30 tab 03/26/22 Mometasone/Formoterol [Dulera 100 Mcg/5 Mcg Inhaler] 2 puff IH BID 30 Days #1 inhaler 03/26/22 Zinc Sulfate [Zinc Sulfate*] 220 mg PO DAILY 30 Days #30 cap 03/26/22 dexAMETHasone [Decadron*] 6 mg PO DAILY 7 Days #7 tab 03/26/22 Review of Systems 10-point ROS is otherwise unremarkable Respiratory: Cough, Shortness of Breath, SOB with Excertion, Sputum, Wheezing Gastrointestinal: Vomiting <Jorje Pack - Last Filed: 06/20/23 02:18> Physical Examination - Physical Exam General: Alert, In no apparent distress, Oriented x2, Cachectic HEENT: Atraumatic, PERRLA, Mucous membr. moist/pink, EOMI, Sclerae nonicteric Neck: Supple, 2+ carotid pulse no bruit, No LAD, Without JVD or thyroid abnormality Respiratory: Diminished, Expiratory wheezes Cardiovascular: No edema, Regular rate/rhythm, Normal S1 S2 Capillary refill: <2 Seconds Gastrointestinal: Normal bowel sounds, No tenderness Musculoskeletal: No tenderness Integumentary: No rashes Neurological: Normal speech, Normal tone Lymphatics: No axilla or inguinal lymphadenopathy Urinary: Ortiz catheter (Inserted in ED) - Studies Laboratory Data (last 24 hrs) 06/19/23 06/19/23 23:54 22:50 WBC 10.50 Hgb 14.8 Hct 45.4 H Plt Count 214 Sodium 133 L Potassium 3.4 L BUN 20 H Creatinine 1.01 Glucose 207 H Magnesium 2.3 Total Bilirubin 0.3 AST 16 ALT 21 Alkaline Phosphatase 87 Lipase 36 <Jorje Pack - Last Filed: 06/20/23 02:18> - Studies Laboratory Data (last 24 hrs) 06/19/23 06/19/23 23:54 22:50 WBC 10.50 Hgb 14.8 Hct 45.4 H Plt Count 214 Sodium 133 L Potassium 3.4 L BUN 20 H Creatinine 1.01 Glucose 207 H Magnesium 2.3 Total Bilirubin 0.3 AST 16 ALT 21 Alkaline Phosphatase 87 Lipase 36 Microbiology Data (last 24 hrs): 06/19/23 23:54 Blood - Blood Anaerobic Blood Culture - Final 06/19/23 23:58 Nasopharnyx Influenza Type A Antigen Screen - Final 06/19/23 23:58 Nasopharnyx Influenza Type B Antigen Screen - Final <Garcia Castro - Last Filed: 06/20/23 13:05> Assessment and Plan - Plan Assessment: Acute on chronic hypercapnic/hypoxic respiratory failure secondary to COPD with exacerbation Syncope Dehydration, mild hyponatremia, hypokalemia Hypertension Dementia Plan: Acute on chronic hypercapnic/hypoxic respiratory failure secondary to COPD with exacerbation Pulmonology consult, continue as needed nebulizer treatments, p.o. steroids, ICS. Mild respiratory acidosis on ABG, repeat later this morning after neb treatments and steroids given. Appreciate further input from pulmonology. Syncope Monitor on telemetry, trend troponins, echocardiogram ordered. Possibly related to dehydration or hypoxia/hypercapnia. Symptoms have improved as far as mental status goes currently. May also benefit orthostatic vitals during hospitalization. Dehydration, mild hyponatremia, hypokalemia Continue IV fluids, electrolyte protocols. Hypertension Dementia Continue home medications once verified. DVT PPX:Lovenox Code status:Full Discharge Plan: Home Plan to discharge in: Greater than 2 days - Advance Directives Does patient have a Living Will: No Does patient have a Durable POA for Healthcare: No - Code Status/Comfort Care Code Status Assessed: Yes (Full code) Critical Care: No Time Spent Managing Pts Care (In Minutes): 70 <Jorje Pack - Last Filed: 06/20/23 02:18> Date of Service: 06/20/23 Patient seen and examined. Agree with plan of care as mentioned above. Plan to discharge later today. Outpatient follow-up with pulmonary. <Garcia Castro - Last Filed: 06/20/23 13:05>
[2023-06-20 03:27] VITALS: BMI 16.1
[2023-06-20] MEDS ORDERED: ALBUTEROL 2.5 MG/3 ML NEB SOL NEB PRN (03:30)
[2023-06-20] MEDS ORDERED: BENZONATATE 100 MG CAP PO PRN ×2 (03:30→13:38)
[2023-06-20] MEDS ORDERED: ACETAMINOPHEN 500 MG TAB PO PRN (03:30)
[2023-06-20] MEDS ORDERED: ONDANSETRON 4 MG/2 ML VIAL IV PRN (03:30)
[2023-06-20] MEDS: NA CHLORIDE 0.9% 1,000 ML IV SCH ×2 (03:30→16:50)
[2023-06-20] MEDS ORDERED: IPRATROPIUM BROM 0.5MG/2.5ML NEB PRN (03:30)
[2023-06-20 07:10] LABS: Protime INR 1.04
[2023-06-20 07:36] LABS: Thyroid Stimulating Hormone 0.449 uIU/mL (0.358-3.740)
[2023-06-20] MEDS ORDERED: predniSONE 20 MG TAB PO SCH (09:00)
[2023-06-20] MEDS ORDERED: DULERA 200/5 (MOMETASONE/FORMOTEROL) INHALER IH SCH (09:00)
[2023-06-20] MEDS ORDERED: ENOXAPARIN 30 MG/0.3 ML SQ SCH (09:00)
[2023-06-20 10:47] LABS: Blood O2 Saturation 91.8 % (92-98.5)
--- NOTE | 2023-06-20 11:19 | RAD REPORT ---
EXAM DESCRIPTION: CT - Head C Spine Cap Wo Con - 06/20/2023 6:35 am ADDENDUM #[address] images through the cervical spine were obtained at 2 mm slice thickness at 2 mm int erval reconstruction. In addition 2-D multiplanar reformats and the sagittal coronal plane were perfo rmed and reviewed. Multiple transaxial tomograms of the chest, abdomen and pelvis were performed from the lung bases to the symphysis pubis utilizing 5 mm slice thickness at 5 mm interval reconstruction, without administr ation of IV and oral contrast. Multiplanar reformats in the sagittal and coronal plane were generated and reviewed. This exams were performed according to our departmental dose-optimization protocol, which includes au tomated exposure control, adjustment of the mA and/or kV according to patient size and/or use of iter ative reconstruction technique. FINDINGS: CT C-spine: The alignment of the vertebral bodies are normal. Their is mild diffuse bony n eutropenia. There is no evidence of fracture or subluxation. There is degenerative disc disease with decreased intervertebral disc height, anterior spondylosis and posterior osteophyte complex at C4-C7. The spinal canal demonstrate no evidence for significant stenosis. Neural foramina demonstrate to be unremarkable. There are uncovertebral degenerative changes C3-T1. There is no prevertebral soft tiss ue swelling. Sagittal coronal reformatted images demonstrate no subluxation or bony abnormalities. CT chest: The lungs parenchyma demonstrate to be clear. No evidence for pneumothorax. No evidence for significant displaced fractures. The trachea mainstem bronchus demonstrate to be normal. There is no significant pleural and/or perica rdial effusions. The thoracic aorta demonstrate intimal aortic arch calcification. The heart is not enlarged. There ar e no significant coronary artery calcifications. Minimal early aortic valvular calcification. There is no significant mediastinal and/or hilar lymphadenopathy. The axillary regions demonstrate to be clear. Abdomen and pelvis: Grossly the unopacified liver, gallbladder, pancreas, spleen and adrenal glands d emonstrate to be within normal limits, no significant focal lesions were identified. The kidneys demonstrate grossly unremarkable. There is no evidence for nephrolithiasis and/or hydro nephrosis. No focal masses were demonstrated. Grossly the unopacified stomach demonstrate to be markedly distended with the fluid. Otherwise the st omach, small bowel and large bowel demonstrate to be within normal limits. There is no evidence for b owel dilatation/or free air. There is diverticulosis within the sigmoid colon The urinary bladder demonstrate to be within normal limits. The uterus demonstrate to be within lee ann l limits. There are no adnexal masses. The aorta demonstrate atherosclerotic disease extending into t he aortic bifurcation. There is no retroperitoneal lymphadenopathy. There is no evidence for asci june. There is no retroperitoneal hemorrhage. The lumbar spine, spinous processes, transverse processes, sacrum, bilateral iliac bones, superior an d inferior pubic gram a as well as bilateral hip joints demonstrate to be within normal limits. No ev idence for acute bony injuries. IMPRESSION: Degenerative disc disease at C4-C7. No evidence for significant spinal canal stenosis. Atherosclerotic disease of the aorta. No evidence for acute traumatic injury to the chest, abdomen, or pelvis. Electronically signed by: Bakari Richey MD 06/20/2023 12:46 AM CDT End of Addendum EXAM DESCRIPTION: Head C Spine Cap Wo Con 06/20/2023 12:04 AM CDT CLINICAL HISTORY: 82 years, Female, SYNCOPE COMPARISON: 01/19/2022. FINDINGS: Multiple transaxial tomograms of the brain were obtained from the base of the skull to the vertex without contrast. 2-D multiplanar reformats and the coronal and sagittal plane were performed and reviewed. This exam was performed according to our departmental dose-optimization protocol, which includes auto mated exposure control, adjustment of the mA and/or kV according to patient size and/or use of iterat mark reconstruction technique. Brain parenchyma demonstrate mild prominence of the sulci and gyri are corresponding to mild cerebral and cerebellar atrophy. There is moderate periventricular white matter changes of microvascular isch emia. There is no midline shift and/or mass effect. There is no evidence for acute intracranial hemor rhage. Lateral ventricles and cisterns displace normal appearance. No intra or extra axial fluid collections were seen. The calvarium is intact with no evidence for fracture. The visualized portions of the paranasal sinuses and orbits demonstrate to be clear. IMPRESSION: No evidence for acute intracranial hemorrhage. Mild brain atrophy with periventricular white matter changes of microvascular ischemia. Electronically signed by: Bakari Richey MD 06/20/2023 12:05 AM CDT Due to temporary technical issues with the PACS/Fluency reporting system, reports are being signed by the in house radiologists without review as a courtesy to insure prompt reporting. The interpreting radiologist is fully responsible for the content of the report.
--- NOTE | 2023-06-20 11:23 | RAD REPORT ---
EXAM DESCRIPTION: RAD - Chest Single View - 06/19/2023 11:03 pm CLINICAL HISTORY: 82 years Female, COUGH COMPARISON: Chest radiograph dated 09/22/2022 IMPRESSION: Chronic lung changes. No focal consolidation. No pleural effusion. No pneumothorax. Cardiomediastinal silhouette is within normal limits. No acute osseous abnormality. Osteopenia. Electronically signed by: Gurjit Botello DO 06/19/2023 11:17 PM CDT Due to temporary technical issues with the PACS/Fluency reporting system, reports are being signed by the in house radiologists without review as a courtesy to insure prompt reporting. The interpreting radiologist is fully responsible for the content of the report.
--- NOTE | 2023-06-20 12:09 | P.CNS ---
Date of Consult: 06/20/23 Reason for Consult: Respiratory failure Chief Complaint: Respiratory failure History of Present Illness: Patient is 82 years of age with COPD dementia and does not want to talk with her daughter apparently lost consciousness episode of vomiting brought into the emergency room toxic with expiratory wheezing/cording to the nurse patient is stable does not want to communicate agitated Allergies No Known Allergies Allergy (Unverified 03/24/22 07:17) Home Medications: Ascorbic Acid [Vitamin C*] 500 mg PO DAILY 30 Days #30 tablet 03/26/22 Benzonatate [Tessalon Perle*] 100 mg PO TID PRN 7 Days #21 cap 03/26/22 Cholecalciferol (Vitamin D3) [Vitamin D 1000 Iu Tab*] 1,000 unit PO DAILY 30 Days #30 tab 03/26/22 Mometasone/Formoterol [Dulera 100 Mcg/5 Mcg Inhaler] 2 puff IH BID 30 Days #1 inhaler 03/26/22 Zinc Sulfate [Zinc Sulfate*] 220 mg PO DAILY 30 Days #30 cap 03/26/22 dexAMETHasone [Decadron*] 6 mg PO DAILY 7 Days #7 tab 03/26/22 - Past Medical/Surgical History Diabetic: No -: COPD -: Dementia Psychosocial/ Personal History: Lives at home with her daughter - Social History Alcohol use: No CD- Drugs: No Caffeine use: No Place of Residence: Home Review of Systems is unable to be obtained Physical Examination Temp Pulse Resp BP Pulse Ox 99.3 F 84 16 103/44 L 93 06/20/23 08:00 06/20/23 08:00 06/20/23 08:00 06/20/23 08:00 06/20/23 08:00 General: Unresponsive Respiratory: Clear to auscultation bilaterally, Diminished Cardiovascular: No edema, Regular rate/rhythm Laboratory Data (last 24 hrs) 06/19/23 06/19/23 23:54 22:50 WBC 10.50 Hgb 14.8 Hct 45.4 H Plt Count 214 Sodium 133 L Potassium 3.4 L BUN 20 H Creatinine 1.01 Glucose 207 H Magnesium 2.3 Total Bilirubin 0.3 AST 16 ALT 21 Alkaline Phosphatase 87 Lipase 36 - Problems (1) COPD exacerbation Current Visit: No Status: Acute Plan: Patient is 82 years of age admitted with possible underlying COPD exacerbation history his vital signs are all unremarkable no acute changes on the CT scan of the chest and chest x-ray patient stable to be discharged follow-up with me in outpatient not sure how compliant she is going to be with their Dulera recommended nebulized Perforomist at home now or even trilogy
[2023-06-20 13:09] VITALS: O2SAT 95
--- NOTE | 2023-06-20 13:11 | P.DS ---
Discharge Date: 06/20/23 Disposition: ROUTINE DISCHARGE Discharge Condition: GOOD Reason for Admission: Respiratory failure Consultations: Pulmonary Brief History of Present Illness: Pt is an 82-year-old female with history of COPD, dementia presents to the emergency department with chief complaint of altered mental status. Her daughter who lives with her at home reports that after eating dinner around 10 PM she seemed to have lost consciousness, she was nodding off before that and seemed to slump forward and had an episode of vomiting. Daughter got a cool cloth and washer machine she seemed to arouse and began complaining of back pain. Daughter reports this is chronic in nature and consistent with previous complaints. She was brought into the emergency department still less responsive than her baseline, sats were around 88% on room air, noted to have expiratory wheezing. She was evaluated in the emergency department her labs were significant for white blood cell 10.5 hemoglobin 14.8 hematocrit 45.4 sodium 133 potassium 3.4 chloride 93 bicarb 37 BUN 20 creatinine 1.01 glucose [address] head/C-spine/chest abdomen pelvis was performed which was negative for any acute findings not suggestive of any pneumonia or acute pulmonary/cardiac findings. Initial high-sensitivity troponin was negative at 6.2. ED provider wishes to admit for COPD exacerbation, acute on chronic hypercapnic/hypoxic respiratory failure, possible syncope. Patient is alert and oriented x2 not aware of the year denies losing consciousness remembers vomiting but daughter thinks that she did pass out. Hospital Course: Patient has done well during hospital stay. Patient clinically stable for discharge. CT imaging was negative. Patient denies any new complaints. Labs been reviewed. At this time patient will discharge home with outpatient follow- up with animal pathology teacher and PCP. Vital Signs/Physical Exam: Temp Pulse Resp BP Pulse Ox 99.3 F 84 16 103/44 L 93 06/20/23 08:00 06/20/23 08:00 06/20/23 08:00 06/20/23 08:00 06/20/23 08:00 General: Alert, In no apparent distress, Oriented x3 Laboratory Data at Discharge: WBC 10.50 thou/uL (4.3-10.9) 06/19/23 22:50 Hgb 14.8 g/dL (12.0-15.0) 06/19/23 22:50 Hct 45.4 % (36.0-45.0) H 06/19/23 22:50 Plt Count 214 thou/uL (152-406) 06/19/23 22:50 PT 11.4 SECONDS (9.5-12.5) 06/20/23 06:58 INR 1.04 06/20/23 06:58 Sodium 133 mEq/L (136-145) L 06/19/23 23:54 Potassium 3.4 mEq/L (3.5-5.1) L 06/19/23 23:54 BUN 20 mg/dL (7-18) H 06/19/23 23:54 Creatinine 1.01 mg/dL (0.55-1.02) 06/19/23 23:54 Glucose 207 mg/dL (74-106) H 06/19/23 23:54 Magnesium 2.3 mg/dL (1.6-2.4) 06/19/23 23:54 Total Bilirubin 0.3 mg/dL (0.2-1.0) 06/19/23 23:54 AST 16 U/L (15-37) 06/19/23 23:54 ALT 21 U/L (13-56) 06/19/23 23:54 Alkaline Phosphatase 87 U/L (45-117) 06/19/23 23:54 Lipase 36 U/L (13-75) 06/19/23 23:54 Home Medications: Ascorbic Acid [Vitamin C*] 500 mg PO DAILY 30 Days #30 tablet 03/26/22 Benzonatate [Tessalon Perle*] 100 mg PO TID PRN 7 Days #21 cap 03/26/22 Cholecalciferol (Vitamin D3) [Vitamin D 1000 Iu Tab*] 1,000 unit PO DAILY 30 Days #30 tab 03/26/22 Mometasone/Formoterol [Dulera 100 Mcg/5 Mcg Inhaler] 2 puff IH BID 30 Days #1 inhaler 03/26/22 Zinc Sulfate [Zinc Sulfate*] 220 mg PO DAILY 30 Days #30 cap 03/26/22 Albuterol Neb [Proventil 0.083% Neb Soln] 2.5 mg NEB [id number] PRN #60 amp 06/20/23 Benzonatate [Tessalon Perle*] 100 mg PO TID PRN #20 cap 06/20/23 Ipratropium Neb [Atrovent*] 0.5 mg NEB [id number] PRN #60 amp 06/20/23 predniSONE [Prednisone*] 20 mg PO BID #20 tab 06/20/23 New Medications: Ipratropium Neb [Atrovent*] 0.5 mg NEB [id number] PRN #60 amp PRN Reason: Wheezing predniSONE [Prednisone*] 20 mg PO BID #20 tab Albuterol Neb [Proventil 0.083% Neb Soln] 2.5 mg NEB [id number] PRN #60 amp PRN Reason: Wheezing Benzonatate [Tessalon Perle*] 100 mg PO TID PRN #20 cap PRN Reason: Cough Physician Discharge Instructions: -DC IV and DC home -Follow-up with PCP in 1 to 2 weeks -Follow-up with Pulmonary in 1 to 2 weeks -Please call Dr. Castro at [phone] if any questions regarding hospital stay -Please call nursing station at [phone] if any nursing or medication questions -Return to the emergency room if symptoms worsen Diet: AHA Activity: Fall precautions Followup: Ever Rubio NP [Primary Care Provider] - Time spent managing pt's care (in minutes): 35
[2023-06-20 16:29] VITALS: BP 120/54; TEMP 98
[2023-06-20] MEDS ORDERED: ENSURE ENLIVE 237 ML CAN PO SCH (21:00)
[2023-06-20] MEDS ORDERED: DULERA 100/5 (MOMETASONE/FORMOTEROL) INHALER IH SCH (21:00)
[2023-06-21] MEDS ORDERED: ASCORBIC ACID 500 MG TABLET PO SCH (09:00)
[2023-06-21] MEDS ORDERED: VITAMIN D 1000 UNIT TAB PO SCH (09:00)
[2023-06-21] MEDS ORDERED: ZINC SULFATE 220 MG CAP PO SCH (09:00)
--- NOTE | 2023-06-21 16:50 | EKG ---
Test Date: 2023-06-19 Test Time: 22:55:33 [employer] Supervisor: CARMELO MEASUREMENT RESULTS: Intervals: Rate: 72 LA: 166 QRSD: 78 QT: 402 QTc: 440 [place]: P: 96 LA: 166 QRS: 83 T: 82 INTERPRETIVE STATEMENTS: Normal sinus rhythm Junctional ST depression, probably normal Borderline ECG Compared to ECG 09/22/2022 22:52:50 ST (T wave) deviation now present Electronically Signed On 06-21-23 16:45:05 CDT by Zack Hathaway
== END 2023-06-20 18:00 | disposition home or self-care (01) ==
LOC: ER 22:30 → ERHOLD 06-20 02:08 → INTOOBSV 06-20 02:08 → 4TH 06-20 02:25
PROVIDERS: ADMIT Hospitalist; ATTEND Hospitalist
DX: J96.22 Acute and chronic respiratory failure with hypercapnia (principal); J44.1 Chronic obstructive pulmonary disease with (acute) exacerbation; F03.90 Unspecified dementia, unspecified severity, without behavioral disturbance, psychotic disturbance, mood disturbance, and anxiety; R41.82 Altered mental status, unspecified; R55 Syncope and collapse; E86.0 Dehydration; E87.1 Hypo-osmolality and hyponatremia; E87.6 Hypokalemia; I10 Essential (primary) hypertension; R53.1 Weakness; R63.0 Anorexia; Z20.822 Contact with and (suspected) exposure to COVID-19; Z68.1 Body mass index [BMI] 19.9 or less, adult
CPT/HCPCS: 87040 ×2; 85025; 81001; 80048; 36415; 83735; 85610; 80076; 83605; 84443; 84484 ×3; 84439; 83690; 83880; 87804 ×2; 70450; 71250; 72125; 71045; 97116; 97161; 97530; 82805 ×2; 94760; 87811; 36600 ×2; J7512; J7614; J7644; C9113; J1720; J7030 ×2; J0692 ×2; 93005; G0378; J3535